=== PATIENT | male | born 1975 | race Caucasian/White ===

== ENCOUNTER 2017-12-28 04:21 | Observation (INO) ==
[2017-12-28] MEDS ORDERED: Aspirin 81 MG TAB.CHEW PO ONE (04:28)
--- NOTE | 2017-12-28 04:28 | Emergency Department Note ---
Disposition Clinical Impression: Chest pain Qualifiers: Chest pain type: unspecified Qualified Code(s): R07.9 - Chest pain, unspecified Disposition: Admitted As Inpatient Condition: Good Time of Disposition: 05:35 General Adult HPI - General Stated complaint: chest pain Source: patient Mode of arrival: ambulatory Limitations: no limitations Nursing Notes Reviewed: Yes Vital Signs Reviewed: Yes - History of Present Illness HPI Narrative: 42-year-old male presents emergency department with concern for chest pain. Patient reports that he woke up suddenly from sleep with left-sided rib cage pain that also radiated down his left arm. States that he was diaphoretic and nauseous with it. He took a Zofran before he came via EMS. Patient states his got chronic history of gastroparesis, and is never felt this way before. Also reports some of the pain began substernally as well. Patient denies any history of heart attack. He does report history of smoking and hypertension. - Related Data Home Medications Medication Instructions Recorded Confirmed Citalopram Hydrobromide [Celexa] 40 mg PO DAILY 12/06/17 12/28/17 Dicyclomine [Bentyl] 20 mg PO BID 12/06/17 12/28/17 Metoclopramide [Reglan] 10 mg PO TID 12/06/17 12/28/17 Ondansetron HCl [Zofran] 4 mg PO Q4H PRN 12/06/17 12/28/17 Pantoprazole Sodium [Protonix] 40 mg PO DAILY 12/06/17 12/28/17 Promethazine [Phenergan] 25 mg PO BID PRN 12/06/17 12/28/17 buPROPion HCl [Zyban] 150 mg PO BID 12/06/17 12/28/17 hydrOXYzine pamoate [Hydroxyzine 25 mg PO TID 12/06/17 12/28/17 Pamoate] ALPRAZolam [Xanax 1 MG Tablet] 1 mg PO DAILY PRN 12/28/17 12/28/17 Allergies Allergy/AdvReac Type Severity Reaction Status Date / Time No Known Allergies Allergy Verified 12/06/17 10:10 All systems ED: reviewed and negative except as stated. Review of Systems: As Per HPI Constitutional: Denies: fever Cardiovascular: Reports: chest pain. Denies: palpitations Respiratory: Denies: cough, dyspnea Gastrointestinal: Denies: abdominal pain, nausea, vomiting Genitourinary: Denies: urgency, dysuria, frequency Musculoskeletal: Reports: other (Left arm pain). Denies: back pain Integumentary: Denies: rash Past Medical History - Past Medical History Medical history: Reports: GERD, other Surgical history: Reports: cholecystectomy Psychiatric history: Reports: anxiety, depression - Social History Smoking Status: Current every day smoker Smokeless Tobacco Status: No Alcohol use: Reports: none Drug use: Reports: marijuana Physical Exam - General Limitations: no limitations General appearance: alert, anxious - Head Head exam: normocephalic - Eye Eye exam: Present: EOMI. Absent: scleral icterus - ENT ENT exam: normal oropharynx - Neck Neck exam: Present: trachea midline - Chest Chest inspection: Present: symmetric chest wall rise - Respiratory Respiratory exam: Present: normal lung sounds bilaterally. Absent: respiratory distress, accessory muscle use - Cardiovascular Cardiovascular exam: Present: regular rate, normal rhythm, normal heart sounds - Abdominal Exam Abdominal exam: Present: soft, Non-Tender. Absent: distention, guarding, rebound, rigidity - Extremities Exam Extremities exam: Present: normal capillary refill - Back Exam Back exam: Present: full ROM - Neurological Exam Neurological exam: Present: alert, oriented X3 - Psychiatric Psychiatric exam: Present: normal affect, normal mood - Skin Skin exam: Present: warm, dry, intact, normal color. Absent: rash Course Vital Signs Temperature 97.7 F 12/28/17 04:28 Pulse Rate 89 12/28/17 04:28 Respiratory Rate 18 12/28/17 04:28 Blood Pressure 133/109 12/28/17 04:28 O2 Sat by Pulse Oximetry 98 12/28/17 04:28 Temperature 97.7 F 12/28/17 04:28 Pulse Rate 89 12/28/17 04:28 Respiratory Rate 16 12/28/17 05:54 Blood Pressure 131/97 12/28/17 05:54 O2 Sat by Pulse Oximetry 97 12/28/17 04:31 Oxygen Delivery Oxygen Delivery Room Air Medical Decision Making - MDM Narrative Medical decision making narrative: 42-year-old male presents emergency Department with new onset chest pain. Patient was reporting being diaphoretic at the house, having sudden onset of chest pain right before arrival to the emergency department. EKG did not reveal any ischemic ST changes. Troponin was negative. Chest x-ray was within normal limits. Creatinine function was good. No leukocytosis. Hemoglobin was normal. Patient was given nitroglycerin as well as aspirin. After administration of the second supple nitroglycerin, patient did have symptomatic improvement with the left-sided chest pain. Patient was also given fentanyl here in the emergency department. Patient has history of anxiety. He was very anxious about what was going on with his chest pain as he has never felt this way. We have addressed this by administering Ativan. Patient's story is highly suspicious. Recommended admission for further observation and management of patient's chest pain. Patient agreed with the plan. Hospitalist agreed to accept the patient. Hemodynamically stable at time of admission. Chest X-Ray 12/28/17 04:28 IMPRESSION: Negative portable chest. D/ / Zane Mari MD / Zane Mari MD Interpreting Provider: Zane Mari MD Vital Signs Temperature 97.7 F 12/28/17 04:28 Pulse Rate 89 12/28/17 04:28 Respiratory Rate 18 12/28/17 04:28 Blood Pressure 133/109 12/28/17 04:28 O2 Sat by Pulse Oximetry 98 12/28/17 04:28 Temperature 97.7 F 12/28/17 04:28 Pulse Rate 89 12/28/17 04:28 Respiratory Rate 18 12/28/17 04:28 Blood Pressure 133/109 12/28/17 04:28 O2 Sat by Pulse Oximetry 97 12/28/17 04:31 Oxygen Delivery Oxygen Delivery Nasal Cannula - Lab Data Result diagrams: 12/28/17 04:30 12/28/17 04:30 Lab Results 12/28/17 12/28/17 12/28/17 Range/Units 04:30 04:30 04:30 WBC 8.6 (4.3-11.1) K/mcL RBC 4.90 (4.19-5.50) M/mcL Hgb 16.1 (12.9-16.9) g/dL Hct 44.4 (37.5-50.1) % MCV 90.6 (83.0-100.0) fL MCH 32.9 (28.0-33.3) pg MCHC 36.3 H (31.6-35.5) g/dL RDW 12.4 (11.5-14.5) % Plt Count 247 (140-400) K/mcL MPV 8.8 L (9.4-12.4) fL Immature Gran % 0.2 (0-4) % Seg Neutrophils % 71.4 % Lymphocytes % 20.6 % Monocytes % 6.3 % Eosinophils % 1.2 % Basophils % 0.3 % Neutrophils # 6.1 (1.6-8.9) K/mcL Lymphocytes # 1.8 (0.6-4.6) K/mcL Monocytes # 0.5 (0.0-1.3) K/mcL Eosinophils # 0.1 (0.0-0.6) K/mcL Basophils # 0.0 (0.0-0.2) K/mcL PT 11.5 (9.4-12.1) Seconds INR 1.0 APTT 27.8 (26.0-36.0) Seconds Sodium 136 (136-145) mEq/L Potassium 3.6 (3.5-5.1) mEq/L Chloride 104 (98-107) mEq/L Carbon Dioxide 23 (23-29) mEq/L BUN 17 (6-20) mg/dL Creatinine 0.62 L (0.70-1.30) mg/dL Est GFR ( Amer) > 60 (> 60) Est GFR (Non-Af Amer) > 60 (> 60) BUN/Creatinine Ratio 27 H (6-26) Glucose 133 H (70-105) mg/dL Calculated Osmolality 285 (280-300) Calcium 9.7 (8.6-10.3) mg/dL Troponin I < 0.03 (< 0.04) ng/mL - EKG Data EKG #1 EKG attestation: Yes I reviewed and interpreted this EKG. EKG results narrative: 4:26 Ventricular rate 70 bpm, IA interval 147 ms, QRS duration 106 ms, QT 370 ms, QTC 403 ms, left axis deviation. Sinus rhythm with a ventricular rate of 70 bpm. No evidence of any ischemic ST changes on this EKG. Attestation Statement - Attestation Attestation: Dr Troncoso note: Pt seen in conjunction w/ resident Dr Pabon; please see his charting for complete documentation. I spent [id number]-[id number] time with the patient and I agree with the patient's treatment and disposition. Chest pain at rest after midnight ; x rays and labs reviewed; pain free on arrival; pt denies such sx prior;
[2017-12-28 04:44] LABS: Basophils % 0.3 %; Eosinophils # 0.1 K/mcL (0.0-0.6); Eosinophils % 1.2 %; Hematocrit 44.4 % (37.5-50.1); Hemoglobin 16.1 g/dL (12.9-16.9); Immature Granulocytes % 0.2 % (0-4); Lymphocytes # 1.8 K/mcL (0.6-4.6); Lymphocytes % 20.6 %; Mean Corpuscular HGB Conc 36.3 g/dL (31.6-35.5); Mean Corpuscular Hemoglobin 32.9 pg (28.0-33.3); Mean Corpuscular Volume 90.6 fL (83.0-100.0); Mean Platelet Volume 8.8 fL (9.4-12.4); Monocytes # 0.5 K/mcL (0.0-1.3); Monocytes % 6.3 %; Neutrophils # 6.1 K/mcL (1.6-8.9); Platelet Count 247 K/mcL (140-400); Red Cell Distribution Width 12.4 % (11.5-14.5); Segmented Neutrophils % 71.4 %
[2017-12-28] MEDS ORDERED: Nitroglycerin 0.4 MG TAB.SUBL SL PRN (04:47)
[2017-12-28] MEDS ORDERED: 0.9 % Sodium Chloride 1,000 ML IVC ONE (04:47)
[2017-12-28 04:49] LABS: Prothrombin Time 11.5 Seconds (9.4-12.1)
[2017-12-28 04:51] LABS: Activated Partial Thrombo Time 27.8 Seconds (26.0-36.0)
[2017-12-28] MEDS ORDERED: *HR* LORazepam 2 MG/ML VIAL IVP ONE ×2 (05:01→05:36)
[2017-12-28] MEDS ORDERED: *HR* LORazepam 2 MG/ML VIAL ONE (05:03)
[2017-12-28 05:05] LABS: BUN/Creatinine Ratio 27 (6-26); Blood Urea Nitrogen 17 mg/dL (6-20); Calcium 9.7 mg/dL (8.6-10.3); Carbon Dioxide 23 mEq/L (23-29); Chloride 104 mEq/L (98-107); Glucose 133 mg/dL (70-105); Osmolality,Calculated 285 (280-300); Potassium 3.6 mEq/L (3.5-5.1); Sodium 136 mEq/L (136-145); eGFR For Non-African Americans > 60 (> 60)
[2017-12-28 05:06] LABS: Troponin I < 0.03 ng/mL (< 0.04)
[2017-12-28] MEDS ORDERED: *HR* FentaNYL (PF) 100 MCG/2 ML VIAL IVP ONE (05:12)
[2017-12-28] MEDS ORDERED: Naloxone 0.4 MG/ML INJ IVP PRN (06:20)
[2017-12-28] MEDS ORDERED: *HR* OxyCODONE Immed Rel 5 MG TABLET PO PRN (06:20)
[2017-12-28] MEDS ORDERED: Acetaminophen 325 MG TABLET PO PRN (06:20)
[2017-12-28] MEDS ORDERED: *HR* HYDROcodone/Acet 5/325 mg TABLET PO PRN (06:20)
[2017-12-28 06:51] LABS: Cholesterol 209 mg/dL (< 200); HDL Cholesterol 35 mg/dL (40-59); LDL Cholesterol,Calculated 147 mg/dL (0-99); Triglycerides 135 mg/dL (< 150)
[2017-12-28 08:52] LABS: Estimated Average Glucose 111 mg/dl; Hemoglobin A1C 5.5 %
[2017-12-28] MEDS ORDERED: Ondansetron ODT 4 MG TAB.RAPDIS PO PRN (10:00)
--- NOTE | 2017-12-28 10:09 | Internal Med History&Physical ---
Date of Encounter: 12/28/17 Time of Encounter: 10:04 Internal Medicine - H&P: HPI Chief complaint: rib/chest pain Admitted From: Home Plans for Post Hospital Care: Home History of present illness: Mr. Givens is a 42 year old male with a PMH of GERD, anxiety, gastroparesis, who presented with left sided rib pain with radiated to his left chest. He reports that the pain began last night and caused him to awake from sleep. Associated symptoms include, left arm numbness and tingling, dyspnea, nausea and diaphoresis. Symptoms are intermittent and exacerbated with use of LLE, currently denies any pain during my examination. Denies any family cardiac history, and denies any prior personal cardiac history. He is a daily 1/2 PPD smoker and regular marijuana user. Workup in the ED included an EKG which per my review did not have any ST-T waver elevations concerning for ischemia. Additionaly, his initial cardiac enzyme was negative <0.03, and CXR was negative for acute process. Given his presentation he is being admitted for further workup and evaluation and admitted for observation. Past Med Surg Social Fam HX - Past Medical History Medical history: GERD, other Additional medical history: gastroporesis Psychiatric history: anxiety, depression - Past Surgical History Surgical History: cholecystectomy Additional surgical history: alcoholism, quit Jan 2015 - Social History Smoking Status: Current every day smoker Smokeless Tobacco Status: No Alcohol use: none Drug use: marijuana - Family History Father Living Status: Cause of : lung ca Hx Family Cardiac Disorders: No Hx Family Respiratory Disorders: No Hx Family Cancer: Yes (throat ca) Hx Family GI Disorders: No Hx Family Genitourinary Disorders: No Hx Family Endocrine Disorder: No Hx Family Musculoskeletal Disorders: No Hx Family Neuromuscular Disorders: No Hx Family Neurologic Disorders: No Hx Family HEENT Disorders: No Hx Family Autoimmune Disorders: No Hx Family Reproductive Disorders: No Hx Family Psychosocial Disorders: No Hx Family Medical Disorders: No Mother Adopted: No Family Member Ethnicity: Non- Living Status: Cause of : lung ca Hx Family Cardiac Disorders: No Hx Family Respiratory Disorders: No Hx Family Cancer: Yes (brain) Hx Family GI Disorders: No Hx Family Genitourinary Disorders: No Hx Family Endocrine Disorder: No Hx Family Musculoskeletal Disorders: No Hx Family Neuromuscular Disorders: No Hx Family Neurologic Disorders: No Hx Family HEENT Disorders: No Hx Family Autoimmune Disorders: No Hx Family Reproductive Disorders: No Hx Family Psychosocial Disorders: No Hx Family Medical Disorders: No Internal Medicine - H&P: Meds Citalopram Hydrobromide [Celexa] 40 mg PO DAILY 12/06/17 [History] Dicyclomine [Bentyl] 20 mg PO BID 12/06/17 [History] Metoclopramide [Reglan] 10 mg PO TID 12/06/17 [History] Ondansetron HCl [Zofran] 4 mg PO Q4H PRN 12/06/17 [History] Pantoprazole Sodium [Protonix] 40 mg PO DAILY 12/06/17 [History] Promethazine [Phenergan] 25 mg PO BID PRN 12/06/17 [History] hydrOXYzine pamoate [Hydroxyzine Pamoate] 25 mg PO TID 12/06/17 [History] ALPRAZolam [Xanax 1 MG Tablet] 1 mg PO DAILY PRN 12/28/17 [History] Desipramine [Norpramine] 25 mg PO HS 12/28/17 [History] 3 Allergy/AdvReac Type Severity Reaction Status Date / Time No Known Allergies Allergy Verified 12/06/17 10:10 All Systems PM: A 10-system review of systems was performed and is negative for pertinent findings except as documented above in the HPI. - Constitutional Constitutional: no chills, no fever(s), no night sweats - EENT Eyes: no change in vision, no discharge, no pain, no photophobia Ears: no ear discharge, no ear pain, no tinnitus Nose, mouth and throat: no dysphagia, no nasal discharge, no neck pain, no sore throat - Cardiovascular Cardiovascular ROS IM: as per HPI - Respiratory Respiratory: as per HPI, no cough, no hemoptysis, no wheezing, no chest congestion - Gastrointestinal Gastrointestinal: no abdominal pain, no diarrhea, no hematemesis, no hematochezia, no melena, no nausea, no vomiting - Constitutional Vitals: Temp Pulse Resp BP Pulse Ox 97.5 F L 91 16 131/90 96 12/28/17 06:31 12/28/17 06:31 12/28/17 06:31 12/28/17 06:31 12/28/17 06:31 Exam: Musculoskeletal: tenderness below left axilla with palpation, no swelling, lymphnode swelling noted. No tenderness to palpation of chest. Reports that his pain was slightly worse with use of LUE - Head Head exam: Present: atraumatic, normocephalic - Eye Eye exam: Present: PERRL, conjuntiva pink, sclera anicteric Pupils: Present: PERRL - Neck Neck exam general surgery: Present: supple, trachea midline. Absent: lymphadenopathy - Respiratory Respiratory exam: Present: CTAB. Absent: accessory muscle use, rales, rhonchi, wheezes - Cardiovascular Cardiovascular exam: Present: RRR, +S1, +S2. Absent: diastolic murmur, gallop, rubs, systolic murmur - GI/Abdominal GI/Abdominal exam: Present: normal bowel sounds, soft, no peritoneal signs. Absent: distended, tenderness - Extremities Exam Extremities exam: Present: warm, radial pulses palpable and symmetrical. Absent : calf tenderness, cyanotic, pedal edema - Neurological Exam Neurological exam: Present: CN II-XII intact, oriented X3, no focal deficits. Absent: pronater drift, facial droop, speech deficit - Skin Skin exam: Present: dry, intact Internal Med - H&P Results - Labs CBC & Chem 7: 12/28/17 04:30 12/28/17 04:30 - EKG Data -: EKG Interpreted by Myself EKG shows normal: sinus rhythm Rate: normal - EKG Data Prior EKG available for review: no - Impressions Impressions Chest X-Ray 12/28/17 04:28 IMPRESSION: Negative portable chest. D/ / Zane Mari MD / Zane Mari MD Interpreting Provider: Zane Mari MD - Assessment and plan (1) Chest pain Current Visit: Yes Status: Acute Assessment and plan: Presents with left sided chest pain/ left rib pain; presentation appears to be more musculoskeletal in nature than true cardiac pain however, given that the patient is reporting diaphoresis, nausea and shortness of breath we will continue rule out ACS. CXR negative for acute process, initial cardiac enzyme negative, EKG without any ST-T wave changes concerning for ischemia. In the ED the patient was noted to be anxious and admits to having history of anxiety. I believe that there is an anxiety component contributing to his current presentation. Resume home anxiolytics Nothing by mouth now, stress test this afternoon Echocardiogram Continuous telemetry Serial cardiac enzymes 81 mg aspirin daily Lipid panel in the morning Qualifiers: Chest pain type: unspecified Qualified Code(s): R07.9 - Chest pain, unspecified (2) Rib pain on left side Current Visit: Yes Status: Acute Assessment and plan: see above (3) Anxiety Current Visit: Yes Status: Acute Assessment and plan: See above (4) Gastroparesis Current Visit: Yes Status: Acute Assessment and plan: Continue antiemetic and prokinetic (5) DVT prophylaxis Current Visit: Yes Status: Acute Assessment and plan: low risk, early ambulation - Time Spent With Patient Total time spent is greater than 50% in coordination of care (as documented) at patient's floor/unit and/or counseling patient: less than 15 minutes
[2017-12-28] MEDS: hydrOXYzine pamoate 25 MG CAPSULE PO SCH ×3 (11:21→21:47)
[2017-12-28] MEDS: ALPRAZolam 1 MG TABLET PO PRN (14:18)
--- NOTE | 2017-12-28 17:14 | Electrocardiograph Report ---
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
[2017-12-29 07:53] VITALS: BP 136/87
[2017-12-29] MEDS: ALPRAZolam 1 MG TABLET PO PRN (07:55)
[2017-12-29] MEDS: hydrOXYzine pamoate 25 MG CAPSULE PO SCH (07:55)
[2017-12-29] MEDS ORDERED: Aspirin 81 MG TAB.CHEW PO SCH (09:00)
--- NOTE | 2017-12-29 10:18 | Discharge Summary ---
- NOTES TO OUTPATIENT PROVIDER Notes to Outpatient Provider: Patient reports that he is in need of Xanax PRN. Rx has run out. Pts. lipid panel is also high. Repeat as OP and consider placing pt. on statin. Date of Encounter: 12/29/17 Time of Encounter: 10:16 - Discharge Diagnosis (1) Chest pain Priority: Primary Status: Acute Qualifiers: Chest pain type: unspecified Qualified Code(s): R07.9 - Chest pain, unspecified (2) Rib pain on left side Priority: Primary Status: Acute (3) Anxiety Priority: Secondary Status: Acute (4) Gastroparesis Priority: Secondary Status: Acute (5) DVT prophylaxis Priority: Secondary Status: Acute Hospital course: Mr. Givens is a 42 year old male who was admitted w/left-sided rib pain w/ radiation to left breast and left arm. Worse w/range of motion. Stress test shows NSR @ rest, no baseline arrhythmias noted. Stress ECG negative for ischemia. No arrhythmias noted during exercise or recovery. One PVC noted. PT. demonstrated normal blood pressure response. The exercise capacity was average. No chest pain during stress procedure. Echocardiogram shows LVEF of 60-65%, normal LV chamber size, wall thickness, and function. Mild left ventricular diastolic dysfunction. Normal right ventricular structure and function. No evidence of pulmonary hypertension. No significant valvular dysfunction. Pt. states that he has hx of anxiety and takes Xanax PRN. Sx most likely d/t stress response. Pt. instructed to f/u w/PCP within one week for refill of PRN Xanax. Pt. should also have repeat lipid panel as OP w/PCP w/consideration for possible statin use. Pt. alert/oriented on exam and in no acute distress. Is comfortable w/discharge plan and expresses understanding about f/u w/PCP w/i one week. Discharge discussed with: patient, nurse - Time Spent with Patient Total time spent providing and/or coordinating discharge services: Less than 30 minutes Specific discharge activities: F/u w/PCP within one week for refill of PRN Xanax and possible statin. - Discharge Medications Home Medications: Citalopram Hydrobromide [Celexa] 40 mg PO DAILY 12/06/17 [History] Dicyclomine [Bentyl] 20 mg PO BID 12/06/17 [History] Metoclopramide [Reglan] 10 mg PO TID 12/06/17 [History] Ondansetron HCl [Zofran] 4 mg PO Q4H PRN 12/06/17 [History] Pantoprazole Sodium [Protonix] 40 mg PO DAILY 12/06/17 [History] Promethazine [Phenergan] 25 mg PO BID PRN 12/06/17 [History] hydrOXYzine pamoate [Hydroxyzine Pamoate] 25 mg PO TID 12/06/17 [History] ALPRAZolam [Xanax 1 MG Tablet] 1 mg PO DAILY PRN 12/28/17 [History] Desipramine [Norpramine] 25 mg PO HS 12/28/17 [History] Allergies/Adverse Reactions: 3 Allergy/AdvReac Type Severity Reaction Status Date / Time No Known Allergies Allergy Verified 12/06/17 10:10 Date of admission: 12/28/17 05:39 Primary care physician: Tyler Irwin Jr, Discharging clinician: Logan Fernandes Anticipated date of discharge: 12/29/17 - Constitutional Vitals: Temp Pulse Resp BP Pulse Ox 97.8 F 72 17 136/87 98 12/29/17 07:50 12/29/17 07:50 12/29/17 07:50 12/29/17 07:50 12/29/17 07:50 General appearance: Present: cooperative, A&O X 3, pleasant, no acute distress, answers questions appropriately - Head Head exam: Present: atraumatic, normocephalic - Eye Eye exam: Present: PERRL, conjuntiva pink, sclera anicteric Pupils: Present: PERRL - ENT ENT exam: Present: normal exam - Neck Neck exam general surgery: Present: normal inspection, supple, trachea midline. Absent: lymphadenopathy - Respiratory Respiratory exam: Present: CTAB. Absent: accessory muscle use, rales, rhonchi, wheezes - Cardiovascular Cardiovascular exam: Present: RRR, +S1, +S2. Absent: diastolic murmur, gallop, rubs, systolic murmur - GI/Abdominal GI/Abdominal exam: Present: normal bowel sounds, soft, no peritoneal signs. Absent: distended, tenderness - Rectal Rectal exam: Present: deferred - Additional comments: exam deferred. - Extremities Exam Extremities exam: Present: warm, radial pulses palpable and symmetrical. Absent : calf tenderness, cyanotic, pedal edema - Back Exam Back exam: Present: normal inspection - Neurological Exam Neurological exam: Present: alert, CN II-XII intact, oriented X3, no focal deficits. Absent: pronater drift, facial droop, speech deficit - Psychiatric Psychiatric exam: Present: normal affect, normal mood - Skin Skin exam: Present: dry, intact - Patient Status Disposition: Home, Self-Care Condition: Good Functional capacity at discharge: independent ambulation Overall status at discharge: patient is back to baseline - Discharge Instructions Instructions: Chest Pain (DC), Chest Pain (GEN) Follow Up With: Tyler Irwin Jr, MD [Primary Care Provider] - (Please call and make a follow up appt for 7-10 days.) - Diet and Activity Activity: increase activity as tolerated Diet: advance to your usual diet
== END 2017-12-29 11:31 | disposition home or self-care (01) ==
LOC: 3BNU 04:21 → EMEROO 04:21 → 3BNU 06:00
PROVIDERS: ADMIT Internal Medicine; ATTEND Internal Medicine

== ENCOUNTER 2018-09-17 20:58 | Observation (INO) ==
[2018-09-17] MEDS ORDERED: methylPREDNISolone 125 MG/2 ML VIAL IVP ONE (21:06)
[2018-09-17] MEDS ORDERED: Ipratropium/Albuterol Neb 3 ML IH ONE (21:06)
[2018-09-17] MEDS ORDERED: 0.9 % Sodium Chloride 1,000 ML IVC ONE (21:06)
[2018-09-17] MEDS ORDERED: *HR* LORazepam 2 MG/ML VIAL IVP ONE ×2 (21:07→23:22)
[2018-09-17 21:40] LABS: Basophils % 0.1 %; Hematocrit 45.7 % (37.5-50.1); Hemoglobin 15.6 g/dL (12.9-16.9); Immature Granulocytes % 0.4 % (0-4); Mean Corpuscular HGB Conc 34.1 g/dL (31.6-35.5); Mean Corpuscular Hemoglobin 32.2 pg (28.0-33.3); Mean Corpuscular Volume 94.4 fL (83.0-100.0); Mean Platelet Volume 8.6 fL (9.4-12.4); Monocytes # 0.3 K/mcL (0.0-1.3); Monocytes % 3.5 %; Neutrophils # 6.5 K/mcL (1.6-8.9); Platelet Count 264 K/mcL (140-400); Red Blood Count 4.84 M/mcL (4.19-5.50); Red Cell Distribution Width 13.3 % (11.5-14.5)
[2018-09-17 22:04] LABS: BUN/Creatinine Ratio 28 (6-26); Blood Urea Nitrogen 18 mg/dL (6-20); Calcium 9.7 mg/dL (8.6-10.3); Carbon Dioxide 22 mEq/L (23-29); Chloride 104 mEq/L (98-107); Glucose 108 mg/dL (70-105); Osmolality,Calculated 286 (280-300); Potassium 4.2 mEq/L (3.5-5.1); Sodium 137 mEq/L (136-145); Troponin I < 0.03 ng/mL (< 0.04); eGFR For Non-African Americans > 60 (> 60)
--- NOTE | 2018-09-17 22:28 | Emergency Department Note ---
Disposition Clinical Impression: COPD exacerbation Chest pain Qualifiers: Chest pain type: unspecified Qualified Code(s): R07.9 - Chest pain, unspecified Disposition: Admitted As Inpatient Condition: Fair Referrals: Tyler Irwin Jr, MD [Primary Care Provider] - Time of Disposition: 23:45 SOB HPI - General Stated Complaint: JOYCE Time Seen by Provider: 09/17/18 21:06 Source: patient, EMS Mode of arrival: ambulatory Limitations: no limitations Nursing Notes Reviewed: Yes Vital Signs Reviewed: Yes - History of Present Illness Patient presents emergency room with acute onset of shortness of breath left arm tingliness and panic attack. Patient was seen yesterday for identical symptoms. He is unable to talk himself out of the events here today. 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: other Severity: severe Consistency/Duration: constant Improves with: nothing Worsens with: nothing Known history of: COPD, other Associated symptoms: Reports: chest pain, parasthesias, diaphoresis, nausea/vomiting, sense of impending doom Treatment prior to arrival: oxygen Cough present: No - Related Data Home Medications Medication Instructions Recorded Confirmed Citalopram Hydrobromide [Celexa] 40 mg PO DAILY 12/06/17 12/28/17 Dicyclomine [Bentyl] 20 mg PO BID 12/06/17 12/28/17 Metoclopramide [Reglan] 10 mg PO TID 12/06/17 12/28/17 Ondansetron HCl [Zofran] 4 mg PO Q4H PRN 12/06/17 12/28/17 Pantoprazole Sodium [Protonix] 40 mg PO DAILY 12/06/17 12/28/17 Promethazine [Phenergan] 25 mg PO BID PRN 12/06/17 12/28/17 hydrOXYzine pamoate [Hydroxyzine 25 mg PO TID 12/06/17 12/28/17 Pamoate] ALPRAZolam [Xanax 1 MG Tablet] 1 mg PO DAILY PRN 12/28/17 12/28/17 Desipramine [Norpramine] 25 mg PO HS 12/28/17 12/28/17 Previous Rx's Medication Instructions Recorded hydrOXYzine HCl [Hydroxyzine HCl] 50 mg PO BID PRN #10 tablet 06/28/18 predniSONE [PredniSONE] 40 mg PO DAILY #8 tablet 07/28/18 predniSONE [Prednisone] 50 mg PO DAILY #5 tablet 09/10/18 Allergies Allergy/AdvReac Type Severity Reaction Status Date / Time No Known Allergies Allergy Verified 08/25/18 00:28 All systems ED: reviewed and negative except as stated. Review of Systems: As Per HPI Constitutional: Denies: fever, chills Cardiovascular: Reports: chest pain. Denies: palpitations, dyspnea on exertion, orthopnea, edema Respiratory: Reports: dyspnea, wheezes. Denies: cough, sputum production Gastrointestinal: Denies: abdominal pain, nausea, vomiting, diarrhea, constipation Genitourinary: Denies: urgency, dysuria, frequency Musculoskeletal: Denies: back pain, neck pain Integumentary: Denies: rash Neurological: Denies: headache Psychiatric: Reports: anxiety Endocrine: Denies: fatigue Past Medical History - Past Medical History Attestation: Yes The following information was validated with the patient. Source: patient Medical history: Reports: asthma, COPD, GERD, other Surgical history: Reports: cholecystectomy Psychiatric history: Reports: anxiety, depression - Social History Smoking Status: Current every day smoker Smokeless Tobacco Status: No Alcohol use: Reports: none Drug use: Reports: none, marijuana Physical Exam - General Limitations: no limitations General appearance: alert, anxious - Head Head exam: atraumatic, normocephalic, normal inspection - ENT ENT exam: normal exam, normal oropharynx, mucous membranes moist - Neck Neck exam: Present: normal inspection, full ROM, trachea midline. Absent: te nderness - Chest Chest inspection: Present: normal inspection, symmetric chest wall rise. Absent: tenderness - Respiratory Respiratory exam: Present: normal lung sounds bilaterally. Absent: respiratory distress, accessory muscle use - Cardiovascular Cardiovascular exam: Present: regular rate, normal rhythm, normal heart sounds - Abdominal Exam Abdominal exam: Present: soft, Non-Tender, normal bowel sounds. Absent: tenderness, distention, guarding, rebound, rigidity - Extremities Exam Extremities exam: Present: normal inspection - Back Exam Back exam: Present: normal inspection, full ROM. Absent: tenderness - Neurological Exam Neurological exam: Present: alert, oriented X3, CN II-XII intact, normal gait - Psychiatric Psychiatric exam: Present: anxious - Skin Skin exam: Present: warm, dry, intact, normal color Course Course Narrative: p patient was seen and examined the time of arrival. See history of present illness. 42-year-old male presents emergency room by EMS for evaluation of shortness of breath, left arm tingling, chest tightness, panic attack. Patient was seen yesterday for identical symptoms and presentation. He was symptomatically treated yesterday and had a cardiac evaluation completed. Patient electively decided to be discharged home at that time. He was stable all day but did not take any of his home medications. Acutely tonight, the patient started to have panic again and all the other symptoms came back. Patient presented to the emergency room covering and very anxious. Vital signs during transport were stable. Patient is sitting upright in the bed. He speaking in full sentences. He has clear lungs with no wheezing. Heart is regular. Abdomen soft. No pulsatile masses or lesions. Extremities are normal outside of the tremor. No signs of edema or swelling. Patient will have Ativan provided this time along with aspirin. EKG chest x-ray CBC chemistry and troponin will be collected along with BNP and d-dimer. Symptomatic control will be established and disposition determined. Patient will most every required admission of this time secondary to emergent pain and presentation. He is scheduled for a stress test as well as pulmonary function testing in the outpatient setting here in the next week. Patient is otherwise stable. Disposition to be determined - Reevaluation(s) Reevaluation #1: Patient is feeling better but still having palpitations and feeling uncomfortable. He is requiring oxygen here in the emergency room to feel stable at this time. Because of the presentation, as well as a repeat evaluation and complaints of chest pain, the patient will be admitted for COPD exacerbation with chest pain. He does not require anticoagulation at this time. The hospitalist has been paged for admission. Patient was discussed with the hospitalist Dr. Dorado. Detailed review the presentation as well as multiple visits for this patient was discussed. At this time we are diagnosing and treating the patient with a COPD exacerbation and chest pain. Majority this is most likely secondary to panic attacks and anxiety driven issues. Patient will have cardiac evaluation completed. Disposition will be admission. Patient will be monitored here in the emergency department until admission process is completed. No other acute intervention required at this time. Patient is otherwise stable. Time: 23:45 Vital Signs Temperature 97.8 F 09/17/18 21:01 Pulse Rate 85 04/28/19 21:01 Respiratory Rate 20 09/17/18 21:01 Blood Pressure 159/98 09/17/18 21:01 O2 Sat by Pulse Oximetry 99 09/17/18 21:01 Temperature 97.8 F 09/17/18 21:01 Pulse Rate 74 09/17/18 23:42 Respiratory Rate 22 09/17/18 23:42 Blood Pressure 127/84 09/17/18 23:42 O2 Sat by Pulse Oximetry 100 09/17/18 23:42 Oxygen Delivery Oxygen Delivery Nasal Cannula Shortness of Breath/Dyspnea - MDM Narrative Medical decision making narrative: Panic attack, chest pain, shortness of breath, COPD exacerbation - Medical Records Medical records reviewed: Yes I reviewed the patient's medical records. - Lab Data Lab results reviewed: Yes I reviewed the patient's lab results. Result diagrams: 09/17/18 21:31 09/17/18 21:31 Lab Results 09/17/18 09/17/18 09/17/18 Range/Units 21:31 21:31 21:31 WBC 7.8 (4.3-11.1) K/mcL RBC 4.84 (4.19-5.50) M/mcL Hgb 15.6 (12.9-16.9) g/dL Hct 45.7 (37.5-50.1) % MCV 94.4 (83.0-100.0) fL MCH 32.2 (28.0-33.3) pg MCHC 34.1 (31.6-35.5) g/dL RDW 13.3 (11.5-14.5) % Plt Count 264 (140-400) K/mcL MPV 8.6 L (9.4-12.4) fL Immature Gran % 0.4 (0-4) % Seg Neutrophils % 83.0 % Lymphocytes % 13.0 % Monocytes % 3.5 % Eosinophils % 0.0 % Basophils % 0.1 % Neutrophils # 6.5 (1.6-8.9) K/mcL Lymphocytes # 1.0 (0.6-4.6) K/mcL Monocytes # 0.3 (0.0-1.3) K/mcL Eosinophils # 0.0 (0.0-0.6) K/mcL Basophils # 0.0 (0.0-0.2) K/mcL D-Dimer < 215 (0-500) ng/mLFEU Sodium 137 (136-145) mEq/L Potassium 4.2 (3.5-5.1) mEq/L Chloride 104 (98-107) mEq/L Carbon Dioxide 22 L (23-29) mEq/L BUN 18 (6-20) mg/dL Creatinine 0.65 L (0.70-1.30) mg/dL Est GFR ( Amer) > 60 (> 60) Est GFR (Non-Af Amer) > 60 (> 60) BUN/Creatinine Ratio 28 H (6-26) Glucose 108 H (70-105) mg/dL Calculated Osmolality 286 (280-300) Lactic Acid (0.5-2.2) mmol/L Calcium 9.7 (8.6-10.3) mg/dL Troponin I < 0.03 (< 0.04) ng/mL B-Natriuretic Peptide (Less than 100) pg/mL 09/17/18 09/17/18 Range/Units 21:31 21:31 WBC (4.3-11.1) K/mcL RBC (4.19-5.50) M/mcL Hgb (12.9-16.9) g/dL Hct (37.5-50.1) % MCV (83.0-100.0) fL MCH (28.0-33.3) pg MCHC (31.6-35.5) g/dL RDW (11.5-14.5) % Plt Count (140-400) K/mcL MPV (9.4-12.4) fL Immature Gran % (0-4) % Seg Neutrophils % % Lymphocytes % % Monocytes % % Eosinophils % % Basophils % % Neutrophils # (1.6-8.9) K/mcL Lymphocytes # (0.6-4.6) K/mcL Monocytes # (0.0-1.3) K/mcL Eosinophils # (0.0-0.6) K/mcL Basophils # (0.0-0.2) K/mcL D-Dimer (0-500) ng/mLFEU Sodium (136-145) mEq/L Potassium (3.5-5.1) mEq/L Chloride (98-107) mEq/L Carbon Dioxide (23-29) mEq/L BUN (6-20) mg/dL Creatinine (0.70-1.30) mg/dL Est GFR ( Amer) (> 60) Est GFR (Non-Af Amer) (> 60) BUN/Creatinine Ratio (6-26) Glucose (70-105) mg/dL Calculated Osmolality (280-300) Lactic Acid 2.1 (0.5-2.2) mmol/L Calcium (8.6-10.3) mg/dL Troponin I (< 0.04) ng/mL B-Natriuretic Peptide 31 (Less than 100) pg/mL - Radiology Data Radiology results reviewed: Yes I reviewed the patient's radiology results. Chest x-ray is unremarkable for acute signs of intrathoracic related etiology to the symptoms here today - EKG Data EKG attestation: Yes I reviewed and interpreted this EKG. EKG results narrative: EKG shows sinus rhythm. Heart rate is 78. MA interval 136. QRS duration of 98. QTC of 438. [place] is normal. No acute signs of ST segment elevation or myocardial infarction. No acute signs of WPW or Brugada syndrome. EKG is c ompared for the one collected yesterday that shows no acute morphology changes or abnormalities
[2018-09-17] MEDS ORDERED: Aspirin 81 MG TAB.CHEW PO STA (23:29)
[2018-09-18] MEDS ORDERED: hydrOXYzine pamoate 25 MG CAPSULE PO PRN (00:06)
[2018-09-18] MEDS ORDERED: Naloxone 0.4 MG/ML INJ IVP PRN (00:09)
[2018-09-18] MEDS ORDERED: Acetaminophen 325 MG TABLET PO PRN (00:09)
[2018-09-18] MEDS ORDERED: Ipratropium/Albuterol Neb 3 ML IH PRN (00:09)
--- NOTE | 2018-09-18 00:34 | Internal Med History&Physical ---
Date of Encounter: 09/18/18 Time of Encounter: 00:33 Internal Medicine - H&P: HPI Chief complaint: sob Admitted From: Home Plans for Post Hospital Care: Home History of present illness: Kalpesh Givens is a 42-year-old male smoker with a history of substance use disorder and anxiety disorder undergoing diagnosis for COPD who has been admitted here and seen in the emergency department the plethora of times with complaints of shortness of breath and chest pain ranging at least 3 times a month over the past 6 months. He was seen yesterday with complaints of shortness of breath and left-sided chest pain in combination with anxiety but decided to go home afterwards. He comes back again complaining of shortness of breath and chest pain on the left side of his chest with his left arm and left posterior thigh. These are similar complaints seen on history of present illness from December 2017 at which time he underwent stress testing which was negative. Though he says these complaints are not new review of old records demonstrate that these are similar complaints from months ago. He does acknowledge that these complaints are associated with panic attacks and anxiety as his mother at age 44 from lung which he will be turning in a few months and remains a smoker. He denies fever, chills, productive cough. He says he is unable to take a deep breath and feels tightness in his chest. Lab work was unremarkable. D-dimer was less than 200. Chest x-ray revealed no infiltrates or signs of emphysema. He was giving 2 mg of lorazepam to achieve comfort as well as nebulizer therapy, aspirin and steroids. He is admitted for observation. Vitals: Reviewed General: Obese white male sitting up in bed in no acute distress talking to his family in full sentences. Skin: Multiple tattoos but no inflammatory signs present. HEENT: Moist mucous membranes. No conjunctivae pallor. Neck: No lymphadenopathy. No JVD. No carotid bruits. No palpable thyroid. Chest: Normal thoracic expansion. Normal breath sounds. Clear to auscultation. Heart: Normal S1 & S2; rhythmic. No rubs or murmurs. Abdomen: Non-distended, soft and non-tender to palpation. No peritoneal reaction. Extremities: No clubbing, cyanosis or edema. No calf tenderness. Normal distal pulses. Neurological: Awake, alert and oriented to person, place and time. No focal deficits. Psych: Affect appropriate. Assessment/Plan 1. Dyspnea: Possibly related to smoking history and may have COPD. On my physical exam there is no breath sound reduction, wheezing or rhonchi. His x-ray does not have features suggestive of emphysematous disease and he does not meet clinical criteria for chronic bronchitis. He would need dedicated PFTs for a more formal diagnosis and this is already scheduled. There may be a component of anxiety as well but all the same we will observe him overnight, place him on nebulizer therapy as needed and oral steroids for a short course. 2. Chest pain: Troponins have been serially negative, his echo from last summer was unremarkable and his stress test negative. A repeat stress test today is likely unnecessary as his complaints are atypical stating he has pain in his left flank and posterior thigh as well. Will monitor on telemetry; he has received loading dose of aspirin. Advised to follow up with the repeat stress test already scheduled for him as an outpatient. 3. Anxiety disorder: Will place him on alprazolam prn. 4. Substance use disorder: Noted to have had cocaine metabolites in urine in October 2015; will recheck. Past Med Surg Social Fam HX - Past Medical History Medical history: asthma, COPD, GERD, other Additional medical history: gastroparesis Psychiatric history: anxiety, depression - Past Surgical History Surgical History: cholecystectomy Additional surgical history: alcoholism, quit Jan 2015 - Social History Smoking Status: Current every day smoker Smokeless Tobacco Status: No Alcohol use: none Drug use: none, marijuana - Family History Father Living Status: Hx Family Cardiac Disorders: No Hx Family Respiratory Disorders: No Hx Family Cancer: Yes (throat ca) Hx Family GI Disorders: No Hx Family Endocrine Disorder: No Hx Family Neuromuscular Disorders: No Hx Family Neurologic Disorders: No Hx Family HEENT Disorders: No Hx Family Autoimmune Disorders: No Mother Adopted: No Family Member Ethnicity: Non- Living Status: Hx Family Cardiac Disorders: No Hx Family Respiratory Disorders: No Hx Family Cancer: Yes (brain) Hx Family GI Disorders: No Hx Family Endocrine Disorder: No Hx Family Neuromuscular Disorders: No Hx Family Neurologic Disorders: No Hx Family HEENT Disorders: No Hx Family Autoimmune Disorders: No Internal Medicine - H&P: Meds Citalopram Hydrobromide [Celexa] 40 mg PO DAILY 12/06/17 [History] Dicyclomine [Bentyl] 20 mg PO BID 12/06/17 [History] Metoclopramide [Reglan] 10 mg PO TID 12/06/17 [History] Ondansetron HCl [Zofran] 4 mg PO Q4H PRN 12/06/17 [History] Pantoprazole Sodium [Protonix] 40 mg PO DAILY 12/06/17 [History] Promethazine [Phenergan] 25 mg PO BID PRN 12/06/17 [History] hydrOXYzine pamoate [Hydroxyzine Pamoate] 25 mg PO TID 12/06/17 [History] ALPRAZolam [Xanax 1 MG Tablet] 1 mg PO DAILY PRN 12/28/17 [History] Desipramine [Norpramine] 25 mg PO HS 12/28/17 [History] hydrOXYzine HCl [Hydroxyzine HCl] 50 mg PO BID PRN #10 tablet 06/28/18 [Rx] predniSONE [PredniSONE] 40 mg PO DAILY #8 tablet 07/28/18 [Rx] predniSONE [Prednisone] 50 mg PO DAILY #5 tablet 09/10/18 [Rx] Allergy/AdvReac Type Severity Reaction Status Date / Time No Known Allergies Allergy Verified 08/25/18 00:28 All Systems PM: A 10-system review of systems was performed and is negative for pertinent findings except as documented above in the HPI. - Constitutional Vitals: Temp Pulse Resp BP Pulse Ox 97.8 F 74 22 127/84 100 09/17/18 21:01 09/17/18 23:42 09/17/18 23:42 09/17/18 23:42 09/17/18 23:42 Exam: . Internal Med - H&P Results - Labs CBC & Chem 7: 09/17/18 21:31 09/17/18 21:31 Labs: Short CBC 09/17/18 Range/Units 21:31 WBC 7.8 (4.3-11.1) K/mcL Hgb 15.6 (12.9-16.9) g/dL Hct 45.7 (37.5-50.1) % Plt Count 264 (140-400) K/mcL Neutrophils # 6.5 (1.6-8.9) K/mcL BMP 09/17/18 21:31 Sodium 137 Potassium 4.2 Chloride 104 Carbon Dioxide 22 L BUN 18 Creatinine 0.65 L Glucose 108 H Calcium 9.7 Cardiac Enzymes 09/17/18 Range/Units 21:31 Troponin I < 0.03 (< 0.04) ng/mL - Impressions ITS Impressions Chest X-Ray 09/17/18 21:06 IMPRESSION: No radiographic evidence of acute cardiopulmonary process. D/ / Feliberto Dahl MD / Feliberto Dahl MD Interpreting Provider: Feliberto Dahl MD - Time Spent With Patient Total time spent is greater than 50% in coordination of care (as documented) at patient's floor/unit and/or counseling patient: Greater than 35 minutes
[2018-09-18 01:10] LABS: Amphetamine Screen,Urine Negative ng/mL (Cutoff=1000); Barbiturate Screen,Urine Negative ng/mL (Cutoff=200); Benzodiazepines Screen,Urine Negative ng/mL (Cutoff=200); Cannabinoid Screen,Urine Positive ng/mL (Cutoff = 50); Cocaine Screen,Urine Negative ng/mL (Cutoff= 300); Opiate Screen,Urine Negative ng/mL (Cutoff=300); Phencyclidine Screen,Urine Negative ng/mL (Cutoff=25)
[2018-09-18] MEDS: *HR* Heparin 5,000 UNIT/ML VIAL SQ SCH ×3 (06:05→21:36)
[2018-09-18] MEDS: predniSONE 20 MG TABLET PO SCH (07:25)
[2018-09-18] MEDS: ALPRAZolam 0.5 MG TABLET PO PRN ×3 (07:28→23:41)
--- NOTE | 2018-09-18 11:30 | Event Note ---
Date of Encounter: 09/18/18 Time of Encounter: 11:13 Patient was seen and examined at bedside he was seen earlier this morning by hospitalist services. Currently patient does appear to be very anxious at times tearful expressing fear concerning -states he has been experiencing increasing shortness of breath as well as anxiety home he also experiences chest pain left-sided radiating to L arm -troponins have been negative 3 he did undergo a stress test approx year ago which was negative for ischemia-during conversation patient became short of breath-and is crying- no wheezing noted. He states he does have an appointment next month with mental health for anxiety. We will continue with home medications for now as well as steroids. Continue with oxygen as needed-stress test
[2018-09-18] MEDS: Ondansetron ODT 4 MG TAB.RAPDIS PO PRN (15:19)
[2018-09-18] MEDS: Levalbuterol Neb 1.25 MG/3 ML IH PRN (15:33)
[2018-09-18] MEDS: traMADol 50 MG TABLET PO PRN (19:38)
[2018-09-18] MEDS ORDERED: BUSPIRONE HCL 10 MG TABLET PO SCH (21:00)
[2018-09-19] MEDS: *HR* Heparin 5,000 UNIT/ML VIAL SQ SCH (05:28)
[2018-09-19] MEDS: Ondansetron ODT 4 MG TAB.RAPDIS PO PRN (09:02)
[2018-09-19] MEDS: traMADol 50 MG TABLET PO PRN (09:03)
[2018-09-19] MEDS: predniSONE 20 MG TABLET PO SCH (09:04)
[2018-09-19] MEDS: ALPRAZolam 0.5 MG TABLET PO PRN (09:06)
[2018-09-19] MEDS: Levalbuterol Neb 1.25 MG/3 ML IH PRN (09:24)
[2018-09-19 11:46] VITALS: BP 98/56
--- NOTE | 2018-09-19 13:43 | Discharge Summary ---
Orders not resulted at time of discharge: Pending orders 09/18/18 15:48 NM jeremy perf SPECT multi [NM] Routine 09/19/18 06:00 EKG [ECG 12 lead ECG] [ECG] AM 0600 Date of Encounter: 09/19/18 Time of Encounter: 13:39 Hospital course: Mr. Givens is a 42 year old male past mental history of substance abuse anxiety undergoing diagnosis for COPD resented to [facility] ED with multiple complaints including shortness of breath and chest pain he has been seen several times in the past few months for similar complaints. He did present to the ER on 09/09/2018 with complaints of shortness of breath and left-sided chest pain as well as anxiety but he did go home. He presented on 09/18/2018 which was of breath and chest pain on the left side as well as left arm pain. He is currently being treated for anxiety he does express that he has high anxiety concerning since his mother at 44 from lung cancer and that he is a smoker. He denies any fevers chills or productive cough. Lab work was unremarkable d-dimer was less than 200 chest x-ray with no infiltrates or signs of emphysema. He was given Ativan prior to admission as well as aspirin and steroids. During admission patient did have episodes of anxiety and stress and difficulty breathing his lung sounds are clear at this time he did undergo stress test which was negative for ischemia or infarct. Respiratory state is stable at this time no wheezing or rhonchi he did complete a walk test and did not qualify for any home oxygen. She has had multiple visits to the ER with anxiety states that currently he is down to 2 Ativan tablets at home I did perform an [facility] report- will prescribe 3 days of Xanax 0.5mg -advised patient to follow-up with primary care provider as well as mental health states he has no appointment 2 weeks with mental health. He is hemodynamically stable at this time is ready for discharge. - Time Spent with Patient Total time spent providing and/or coordinating discharge services: - Discharge Medications Prescriptions: New predniSONE [PredniSONE] 40 mg PO DAILY 3 Days #6 tablet ALPRAZolam [Xanax 0.5 MG Tablet] 0.5 mg PO BID PRN 3 Days #6 tablet PRN Reason: Anxiety Changed ALPRAZolam [Xanax 1 MG Tablet] 1 mg PO BID PRN 3 Days #6 tablet PRN Reason: Anxiety No Action Citalopram Hydrobromide [Celexa] 40 mg PO DAILY Dicyclomine [Bentyl] 20 mg PO DAILY Metoclopramide [Reglan] 10 mg PO TID PRN PRN Reason: Nausea And Vomiting Ondansetron HCl [Zofran] 4 mg PO Q4H PRN PRN Reason: Nausea Pantoprazole Sodium [Protonix] 40 mg PO DAILY Promethazine [Phenergan] 25 mg PO DAILY predniSONE [Prednisone] 50 mg PO DAILY HydrOXYzine 10 mg PO TID PRN PRN Reason: Anxiety Aspirin Enteric Coated [Aspirin EC] 81 mg PO DAILY Ibuprofen 800 mg PO TID PRN PRN Reason: Pain Home Medications: Citalopram Hydrobromide [Celexa] 40 mg PO DAILY 12/06/17 [History] Dicyclomine [Bentyl] 20 mg PO DAILY 12/06/17 [History] Metoclopramide [Reglan] 10 mg PO TID PRN 12/06/17 [History] Ondansetron HCl [Zofran] 4 mg PO Q4H PRN 12/06/17 [History] Pantoprazole Sodium [Protonix] 40 mg PO DAILY 12/06/17 [History] Promethazine [Phenergan] 25 mg PO DAILY 12/06/17 [History] Aspirin Enteric Coated [Aspirin EC] 81 mg PO DAILY 09/18/18 [History] HydrOXYzine 10 mg PO TID PRN 09/18/18 [History] Ibuprofen 800 mg PO TID PRN 09/18/18 [History] predniSONE [Prednisone] 50 mg PO DAILY 09/18/18 [History] ALPRAZolam [Xanax 0.5 MG Tablet] 0.5 mg PO BID PRN 3 Days #6 tablet 09/19/18 [Rx] ALPRAZolam [Xanax 1 MG Tablet] 1 mg PO BID PRN 3 Days #6 tablet 09/19/18 [Rx] predniSONE [PredniSONE] 40 mg PO DAILY 3 Days #6 tablet 09/19/18 [Rx] Allergies/Adverse Reactions: Allergy/AdvReac Type Severity Reaction Status Date / Time No Known Allergies Allergy Verified 08/25/18 00:28 Date of admission: 09/18/18 00:03 Primary care physician: Tyler Irwin Jr, Consults: 09/18/18 09:11 Consult to Nurse Navigator [CONS] Routine Comment: POSSIBLE COPD - Constitutional Vitals: Temp Pulse Resp BP Pulse Ox 97.9 F 62 17 98/56 96 09/19/18 11:44 09/19/18 11:44 09/19/18 11:44 09/19/18 11:44 09/19/18 11:44 Exam: Skin: Free of rash and discoloration. Eyes: Sclera is white. There is no discharge from eyes. ENMT: Oral/pharyngeal mucosa is normal in appearance. There is no discharge from nose or ears. Respiratory: Normal breath sounds with no crackles and wheezes bilaterally. CV: Heart is regular with no gallop or murmur. GI: Abdomen is flat and soft with no palpable mass or visceromegaly. : There is no tenderness in patient's flanks bilaterally. Neuro exam: He has good strength in upper and lower extremities. He has normal eye movements. Psychiatric: He has normal affect. His thought process is appropriate to the situation. - Patient Status Disposition: Home, Self-Care Condition: Fair Functional capacity at discharge: independent ambulation Overall status at discharge: patient is back to baseline - Discharge Instructions Instructions: Chest Pain (DC), Chronic Obstructive Pulmonary Disease (DC), Anxiety (DC) Follow Up With: Tyler Irwin Jr, MD [Primary Care Provider] - (Left message for Dr. Irwin's office for hospital follow up appt. Please call the office for a hospital follow up in 7-10 days.) Forms: ED Satisfaction Letter - Diet and Activity Activity: increase activity as tolerated Diet: advance to your usual diet
--- NOTE | 2018-09-19 15:20 | Electrocardiograph Report ---
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
== END 2018-09-19 14:23 | disposition home or self-care (01) ==
LOC: 3BNU 20:58 → EMEROOARM 20:58 → 3BNU 09-18 01:01
PROVIDERS: ADMIT Internal Medicine; ATTEND Internal Medicine

== ENCOUNTER 2018-12-14 12:26 | Observation (INO) ==
[2018-12-14] MEDS ORDERED: Haloperidol Lactate 5 MG/ML VIAL IVP ONE (13:10)
[2018-12-14] MEDS ORDERED: 0.9 % Sodium Chloride 1,000 ML IVC ONE (13:10)
[2018-12-14] MEDS ORDERED: Metoclopramide 10 MG/2 ML VIAL IVP STA (13:11)
--- NOTE | 2018-12-14 13:14 | Emergency Department Note ---
Disposition Clinical Impression: Intractable abdominal pain, Gastroparesis, Vomiting Disposition: Admitted As Inpatient Condition: Fair Referrals: Tyler Irwin Jr, MD [Primary Care Provider] - Forms: ED Satisfaction Letter, Work/School Release Time of Disposition: 15:09 General Adult HPI - General Chief complaint: ED Abdominal Pain Stated complaint: abdominal/chest pain Time Seen by Provider: 12/14/18 12:30 Source: patient, EMS Limitations: no limitations Nursing Notes Reviewed: Yes Vital Signs Reviewed: Yes - History of Present Illness HPI Narrative: Presents with blood in the stool which is bright red and occurred 5 times today at home and also epigastric pain for the last 5 days which is severe and sharp and radiates inferiorly and does have associated vomiting and vomited about 20 times today. I did review the previous record. Has had Botox injections in the stomach from the design specialist. Denies any blood in the vomit. Does have some lightheadedness which is not new. Social history: No smoking or alcohol or drugs but does marijuana about twice Pain Scale: 10 - Related Data Home Medications Medication Instructions Recorded Confirmed Citalopram Hydrobromide [Celexa] 20 mg PO DAILY 12/06/17 12/14/18 Metoclopramide [Reglan] 10 mg PO TID PRN 12/06/17 12/14/18 Pantoprazole Sodium [Protonix] 40 mg PO DAILY 12/06/17 12/14/18 Promethazine [Phenergan] 25 mg PO DAILY 12/06/17 12/14/18 LORazepam [Ativan] 1 mg PO BID 09/26/18 12/14/18 Allergies Allergy/AdvReac Type Severity Reaction Status Date / Time No Known Allergies Allergy Verified 11/13/18 11:09 All systems ED: reviewed and negative except as stated. Past Medical History - Past Medical History Medical history: Reports: asthma, COPD, GERD, kidney stones, other Surgical history: Reports: cholecystectomy, tonsillectomy Psychiatric history: Reports: anxiety, depression - Social History Smoking Status: Current every day smoker Smokeless Tobacco Status: No Alcohol use: Reports: none Drug use: Reports: marijuana Physical Exam CONSTITUTIONAL: Alert and oriented X3, well-nourished, well appearing, in no apparent distress HEAD: Normocephalic; atraumatic. EYES: PERRL, no scleral icterus. NOSE: The nose is normal in appearance without rhinorrhea RESP: Normal chest excursion with respiration; breath sounds clear and equal bilaterally; no wheezes, rhonchi, or rales CARD: Regular rhythm, without murmurs, rub or gallop ABD: Non-distended; moderate discomfort palpation epigastric region but soft without rigidity, rebound, guarding, very minimal discomfort palpation suprapubic area, the entire abdomen is soft without rigidity, rebound, guarding SKIN: Normal for age and race; warm and dry; no apparent lesions - General Limitations: no limitations General appearance: alert, in no apparent distress Course Vital Signs Temperature 99.1 F 12/14/18 12:41 Pulse Rate 76 12/14/18 12:41 Respiratory Rate 18 12/14/18 12:41 Blood Pressure 134/105 12/14/18 12:41 O2 Sat by Pulse Oximetry 99 12/14/18 12:41 Temperature 99.1 F 12/14/18 12:41 Pulse Rate 64 12/14/18 15:05 Respiratory Rate 16 12/14/18 15:05 Blood Pressure 143/96 12/14/18 13:27 O2 Sat by Pulse Oximetry 96 12/14/18 15:05 Oxygen Delivery Oxygen Delivery Room Air Medical Decision Making - MDM Narrative Medical decision making narrative: Patient does have intermittent tearfulness, his color is good, breathing comfortably, testing includes labs, IV fluids, IV Haldol, IV Reglan, stool testing, will reassess after medications. The patient did have CT scans of the abdomen to within the last several months without acute abnormality 1314 I spoke w Suyapa who works w Dr. Belcher and she would like the pt discharged and to b seen on Tuesday by herself or Dr. Belcher. She is aware of seeing pt to consider getting set up for more botox injections in the stomach 1349 I did go back and reassessed the patient. States that he will return tomorrow for sent him home today. I did speak again with Suyapa from GI who is the nurse practitioner will like to have the patient minutes medicine and they will consult. I will turn in the consult right now. The patient does take Ativan 1 mg twice a day at home so I will give her 1 dose of Ativan IV. Per the nurse the patient has had 28 visits to the ED so far this year. 1508 I did speak with the hospitalist and she is going down to speak with the patient at this time and then will consult with GI regarding disposition 1534 I did speak with the hospitalist who accepts the patient for admission 1542 - Medical Records Medical records reviewed: Yes I reviewed the patient's medical records. - Lab Data Lab results reviewed: Yes I reviewed the patient's lab results. Result diagrams: 12/14/18 13:04 12/14/18 13:04 Lab Results 12/14/18 12/14/18 12/14/18 Range/Units 13:04 13:04 13:04 WBC 7.1 (4.3-11.1) K/mcL RBC 5.12 (4.19-5.50) M/mcL Hgb 16.3 (12.9-16.9) g/dL Hct 47.8 (37.5-50.1) % MCV 93.4 (83.0-100.0) fL MCH 31.8 (28.0-33.3) pg MCHC 34.1 (31.6-35.5) g/dL RDW 13.0 (11.5-14.5) % Plt Count 257 (140-400) K/mcL MPV 8.5 L (9.4-12.4) fL Sodium 135 L (136-145) mEq/L Potassium 4.0 (3.5-5.1) mEq/L Chloride 106 (98-107) mEq/L Carbon Dioxide 21 L (23-29) mEq/L BUN 21 H (6-20) mg/dL Creatinine 0.81 (0.70-1.30) mg/dL Est GFR ( Amer) > 60 (> 60) Est GFR (Non-Af Amer) > 60 (> 60) BUN/Creatinine Ratio 26 (6-26) Glucose 99 (70-105) mg/dL Calculated Osmolality 283 (280-300) Calcium 9.5 (8.6-10.3) mg/dL Total Bilirubin 0.9 (0.3-1.0) mg/dL Direct Bilirubin 0.1 (0.0-0.2) mg/dL Indirect Bilirubin 0.8 (0.0-1.2) mg/dL AST 21 (13-39) Units/L ALT 20 (7-52) Units/L Alkaline Phosphatase 59 (34-104) Units/L Serum Total Protein 7.1 (6.4-8.9) g/dL Albumin 4.5 (3.5-5.7) g/dL Globulin 2.6 (2.4-3.5) g/dL Albumin/Globulin Ratio 1.7 (1.1-2.2) Lipase 14 (11-82) Units/L Stool Occult Bld Scrn (Negative) Blood Type A POSITIVE Antibody Screen NEGATIVE 12/14/18 Range/Units 13:04 WBC (4.3-11.1) K/mcL RBC (4.19-5.50) M/mcL Hgb (12.9-16.9) g/dL Hct (37.5-50.1) % MCV (83.0-100.0) fL MCH (28.0-33.3) pg MCHC (31.6-35.5) g/dL RDW (11.5-14.5) % Plt Count (140-400) K/mcL MPV (9.4-12.4) fL Sodium (136-145) mEq/L Potassium (3.5-5.1) mEq/L Chloride (98-107) mEq/L Carbon Dioxide (23-29) mEq/L BUN (6-20) mg/dL Creatinine (0.70-1.30) mg/dL Est GFR ( Amer) (> 60) Est GFR (Non-Af Amer) (> 60) BUN/Creatinine Ratio (6-26) Glucose (70-105) mg/dL Calculated Osmolality (280-300) Calcium (8.6-10.3) mg/dL Total Bilirubin (0.3-1.0) mg/dL Direct Bilirubin (0.0-0.2) mg/dL Indirect Bilirubin (0.0-1.2) mg/dL AST (13-39) Units/L ALT (7-52) Units/L Alkaline Phosphatase (34-104) Units/L Serum Total Protein (6.4-8.9) g/dL Albumin (3.5-5.7) g/dL Globulin (2.4-3.5) g/dL Albumin/Globulin Ratio (1.1-2.2) Lipase (11-82) Units/L Stool Occult Bld Scrn Positive A (Negative) Blood Type Antibody Screen - Radiology Data Radiology results reviewed: Yes I reviewed the patient's radiology results.
[2018-12-14 13:30] LABS: Hematocrit 47.8 % (37.5-50.1); Hemoglobin 16.3 g/dL (12.9-16.9); Mean Corpuscular HGB Conc 34.1 g/dL (31.6-35.5); Mean Corpuscular Hemoglobin 31.8 pg (28.0-33.3); Mean Corpuscular Volume 93.4 fL (83.0-100.0); Mean Platelet Volume 8.5 fL (9.4-12.4); Platelet Count 257 K/mcL (140-400); Red Blood Count 5.12 M/mcL (4.19-5.50); White Blood Count 7.1 K/mcL (4.3-11.1)
[2018-12-14 13:38] LABS: Alanine Aminotransferase 20 Units/L (7-52); Albumin 4.5 g/dL (3.5-5.7); Albumin/Globulin Ratio 1.7 (1.1-2.2); Alkaline Phosphatase 59 Units/L (34-104); Aspartate Amino Transferase 21 Units/L (13-39); BUN/Creatinine Ratio 26 (6-26); Bilirubin,Direct 0.1 mg/dL (0.0-0.2); Bilirubin,Indirect 0.8 mg/dL (0.0-1.2); Bilirubin,Total 0.9 mg/dL (0.3-1.0); Blood Urea Nitrogen 21 mg/dL (6-20); Calcium 9.5 mg/dL (8.6-10.3); Carbon Dioxide 21 mEq/L (23-29); Chloride 106 mEq/L (98-107); Globulin 2.6 g/dL (2.4-3.5); Glucose 99 mg/dL (70-105); Lipase 14 Units/L (11-82); Osmolality,Calculated 283 (280-300); Sodium 135 mEq/L (136-145); Total Protein 7.1 g/dL (6.4-8.9); eGFR For African Americans > 60 (> 60); eGFR For Non-African Americans > 60 (> 60)
[2018-12-14] MEDS ORDERED: *HR* LORazepam 2 MG/ML VIAL IVP ONE ×2 (14:50→20:10)
--- NOTE | 2018-12-14 16:28 | Internal Med History&Physical ---
Date of Encounter: 12/14/18 Time of Encounter: 16:28 Internal Medicine - H&P: HPI Chief complaint: epigastric pain History of present illness: Mr. Givens is a 43 year old male Presents with blood in the stool which is bright red and occurred 5 times today at home and also epigastric pain for the last 5 days which is severe and sharp and radiates inferiorly and does have associated vomiting and vomited about 20 times today. The patient has history of gastroparesis, status post Botox injection in the stomach. The patient was evaluated by the ER staff did contact GI team for further evaluation and management, we will see the patient in Past Med Surg Social Fam HX - Past Medical History Medical history: asthma, COPD, GERD, kidney stones, other Additional medical history: gastropareisis Psychiatric history: anxiety, depression - Past Surgical History Surgical History: cholecystectomy, tonsillectomy Additional surgical history: endoscopy with botox - Social History Smoking Status: Current every day smoker Smokeless Tobacco Status: No Alcohol use: none Drug use: marijuana - Family History Father Living Status: Hx Family Cardiac Disorders: No Hx Family Respiratory Disorders: No Hx Family Cancer: Yes (Lung) Hx Family GI Disorders: No Hx Family Endocrine Disorder: No Hx Family Neuromuscular Disorders: No Hx Family Neurologic Disorders: No Hx Family HEENT Disorders: No Hx Family Autoimmune Disorders: No Sister Hx Family Respiratory Disorders: Yes (COPD) Mother Adopted: No Family Member Ethnicity: Non- Living Status: Hx Family Cardiac Disorders: No Hx Family Respiratory Disorders: No Hx Family Cancer: Yes (Lung Cancer) Hx Family GI Disorders: Yes Hx Family Endocrine Disorder: No Hx Family Neuromuscular Disorders: No Hx Family Neurologic Disorders: No Hx Family HEENT Disorders: No Hx Family Autoimmune Disorders: No Internal Medicine - H&P: Meds Citalopram Hydrobromide [Celexa] 20 mg PO DAILY 12/06/17 [History] Metoclopramide [Reglan] 10 mg PO TID PRN 12/06/17 [History] Pantoprazole Sodium [Protonix] 40 mg PO DAILY 12/06/17 [History] Promethazine [Phenergan] 25 mg PO DAILY 12/06/17 [History] LORazepam [Ativan] 1 mg PO BID 09/26/18 [History] Cholecalciferol (D-3) [Vitamin D] 2,000 unit PO DAILY 12/14/18 [History] Dicyclomine Hcl [Bentyl] 20 mg PO BID 12/14/18 [History] Fluticasone/Salmeterol [Advair Hfa 230-21 Mcg Inhaler] 2 inh IH BID 12/14/18 [History] Hyoscyamine SL [Levsin Sl] 0.125 mg SL TID PRN 12/14/18 [History] Mirtazapine [Remeron] 15 mg PO HS 12/14/18 [History] Ondansetron ODT [Zofran ODT] 4 mg SL Q4HR PRN 12/14/18 [History] Allergy/AdvReac Type Severity Reaction Status Date / Time No Known Allergies Allergy Verified 11/13/18 11:09 All Systems PM: A 10-system review of systems was performed and is negative for pertinent findings except as documented above in the HPI. - Constitutional Vitals: Temp Pulse Resp BP Pulse Ox 99.1 F 64 16 150/100 96 12/14/18 12:41 12/14/18 15:05 12/14/18 16:17 12/14/18 16:17 12/14/18 15:05 General appearance: Present: A&O X 3 Exam: . - Head Head exam: Present: atraumatic, normocephalic - Neck Neck exam general surgery: Present: supple, trachea midline. Absent: lymphadenopathy - Respiratory Respiratory exam: Present: CTAB. Absent: accessory muscle use, rales, rhonchi, wheezes - Cardiovascular Cardiovascular exam: Present: RRR, +S1, +S2. Absent: diastolic murmur, gallop, rubs, systolic murmur - GI/Abdominal GI/Abdominal exam: Present: normal bowel sounds, soft, no peritoneal signs. Absent: distended, tenderness - Neurological Exam Neurological exam: Present: CN II-XII intact, oriented X3, no focal deficits. Absent: pronater drift, facial droop, speech deficit Internal Med - H&P Results - Labs CBC & Chem 7: 12/15/18 05:44 12/15/18 05:44 Labs: Short CBC 12/14/18 Range/Units 13:04 WBC 7.1 (4.3-11.1) K/mcL Hgb 16.3 (12.9-16.9) g/dL Hct 47.8 (37.5-50.1) % Plt Count 257 (140-400) K/mcL BMP 12/14/18 13:04 Sodium 135 L Potassium 4.0 Chloride 106 Carbon Dioxide 21 L BUN 21 H Creatinine 0.81 Glucose 99 Calcium 9.5 Liver Function 12/14/18 Range/Units 13:04 Total Bilirubin 0.9 (0.3-1.0) mg/dL Direct Bilirubin 0.1 (0.0-0.2) mg/dL AST 21 (13-39) Units/L ALT 20 (7-52) Units/L Alkaline Phosphatase 59 (34-104) Units/L Albumin 4.5 (3.5-5.7) g/dL - Assessment and Plan (1) Intractable abdominal pain Status: Acute Assessment and plan: Most likely 2/2 Gastroparesis, Patient states he had a history of Botox injections to the stomach that had worked in the past. GI consulted for EGD with Botox injections. (2) Gastroparesis Status: Acute Assessment and plan: See # 1 (3) Vomiting Status: Acute Assessment and plan: Starting antisemitics Qualifiers: Qualified Code(s): R11.10 - Vomiting, unspecified (4) Anxiety Status: Acute (5) DVT prophylaxis Status: Acute - Time Spent With Patient Total time spent is greater than 50% in coordination of care (as documented) at patient's floor/unit and/or counseling patient:
[2018-12-14] MEDS ORDERED: Naloxone 0.4 MG/ML INJ IVP PRN (17:24)
[2018-12-14] MEDS: Ringers Solution, Lactated 1,000 ML IVC SCH (17:41)
[2018-12-14] MEDS: Ondansetron 4 MG/2 ML VIAL IVP PRN (17:41)
[2018-12-14] MEDS: Ketorolac 15 MG/ML VIAL IVP PRN (17:41)
[2018-12-14] MEDS ORDERED: Acetaminophen IV 500 MG/50 ML INFUS..BTL IVPB ONE (20:11)
[2018-12-14 21:34] LABS: Bilirubin,Urine Small (Negative); Blood,Urine Negative (Negative); Clarity,Urine Clear (Clear); Color,Urine Dark Yellow (Yellow); Glucose,Urine (UA) Normal (Normal); Ketones,Urine 15 mg/dL (Negative); Leukocyte Esterase,Urine Negative (Negative); Nitrite,Urine Negative (Negative); PH,Urine 5.5 pH Units (5.0-8.0); Protein,Urine Trace mg/dL (Neg-Trace); Specific Gravity,Urine > 1.030 (1.010-1.025); Urobilinogen,Urine Normal (Normal)
[2018-12-15] MEDS: Ringers Solution, Lactated 1,000 ML IVC SCH (02:15)
[2018-12-15 06:06] LABS: Basophils % 0.5 %; Eosinophils # 0.1 K/mcL (0.0-0.6); Eosinophils % 1.8 %; Hematocrit 43.7 % (37.5-50.1); Immature Granulocytes % 0.4 % (0-4); Lymphocytes # 2.2 K/mcL (0.6-4.6); Lymphocytes % 40.3 %; Mean Corpuscular Volume 97.1 fL (83.0-100.0); Mean Platelet Volume 8.6 fL (9.4-12.4); Monocytes # 0.5 K/mcL (0.0-1.3); Monocytes % 8.1 %; Neutrophils # 2.7 K/mcL (1.6-8.9); Platelet Count 204 K/mcL (140-400); Red Cell Distribution Width 12.8 % (11.5-14.5); Segmented Neutrophils % 48.9 %; White Blood Count 5.5 K/mcL (4.3-11.1)
[2018-12-15 06:07] LABS: Hemoglobin 14.4 g/dL (12.9-16.9)
[2018-12-15 06:12] LABS: INR 1.1; Prothrombin Time 12.5 Seconds (9.4-12.1)
[2018-12-15 06:15] LABS: Activated Partial Thrombo Time 29.2 Seconds (26.0-36.0)
[2018-12-15 06:27] LABS: Alanine Aminotransferase 18 Units/L (7-52); Albumin 3.6 g/dL (3.5-5.7); Albumin/Globulin Ratio 1.6 (1.1-2.2); Alkaline Phosphatase 52 Units/L (34-104); Aspartate Amino Transferase 18 Units/L (13-39); BUN/Creatinine Ratio 22 (6-26); Bilirubin,Total 1.1 mg/dL (0.3-1.0); Blood Urea Nitrogen 17 mg/dL (6-20); Calcium 8.7 mg/dL (8.6-10.3); Carbon Dioxide 23 mEq/L (23-29); Chloride 106 mEq/L (98-107); Chol/HDL Ratio 5.8 (0-4.9); Cholesterol 187 mg/dL (< 200); Globulin 2.2 g/dL (2.4-3.5); Glucose 94 mg/dL (70-105); HDL Cholesterol 32 mg/dL (40-59); LDL Cholesterol,Calculated 119 mg/dL (0-99); Magnesium 1.7 mg/dL (1.6-2.6); Osmolality,Calculated 291 (280-300); Potassium 3.9 mEq/L (3.5-5.1); Sodium 140 mEq/L (136-145); Total Protein 5.8 g/dL (6.4-8.9); Triglycerides 178 mg/dL (< 150); eGFR For African Americans > 60 (> 60); eGFR For Non-African Americans > 60 (> 60)
[2018-12-15] MEDS: Ketorolac 15 MG/ML VIAL IVP PRN (06:36)
[2018-12-15] MEDS: Ondansetron 4 MG/2 ML VIAL IVP PRN (07:06)
[2018-12-15] MEDS ORDERED: *HR* Propofol 200 MG/20 ML VIAL IVP ONE ×2 (08:20→08:52)
--- NOTE | 2018-12-15 09:10 | Gastroenterology Consult Note ---
<Sandra Gil - Last Filed: 12/15/18 09:08> Date of Encounter: 12/15/18 Time of Encounter: 08:50 - Assessment and plan (1) Intractable nausea and vomiting Current Visit: No Status: Acute Assessment and plan: Pt complains of chronic nausea and vomiting. He is maximized on medications at home. He has had multiple ER visits for the same complaints over the years. He does report some relief with botox injections in his stomach, was last done 04/09. Will proceed with EGD and botox injections today. Qualifiers: Vomiting type: unspecified Qualified Code(s): R11.2 - Nausea with vomiting, unspecified (2) Epigastric pain Current Visit: No Status: Acute (3) Gastroparesis Current Visit: No Status: Chronic (4) Diarrhea Current Visit: Yes Status: Acute Qualifiers: Diarrhea type: unspecified type Qualified Code(s): R19.7 - Diarrhea, unspecified (5) Lower abdominal pain, unspecified Current Visit: Yes Status: Acute Assessment and plan: Will check stool studies, CT abdomen 11/08 showed thickening of the sigmoid colon. May need repeat colonosocpy but can be done as an outpatient. - Time Spent With Patient Total time spent is greater than 50% in coordination of care (as documented) at patient's floor/unit and/or counseling patient: GI History of Present Illness - Data of Consult Patient: known to practice within the last 3 years Consult date: 12/15/18 Requesting Physician: Ezio Boyer - Consult Narrative Reason for consult: gastroparesis, nausea and vomiting History of present illness: Mr. Givens is a 39 year old male with PMH of gastroparesis, GERD, and anxiety disorder. Pt presented with recurrent episodes of nausea and vomiting. He was seen in the ER twice in the past week. He says that was diagnosed with gastroparesis at the [facility] some years ago as a failed gastric emptying studies. The scopes have been negative. He states they usually admit him for in fluids and pain medicines and he feels better. Patient claims that he has been hospitalized 30 x in the past year for these symptoms. He states that he smokes marijuana 1-2 times a week. Claims that the pain in his abdomen never goes away, improves for a short period of time with IV pain medications and then recurs when he has a 'flare' of his gastroparesis. He currently takes daily PPI, Zantac, Reglan, Bentyl, Phenergan, Zofran. He also complains of some lower abdominal pain and diarrhea. He states he had some streaky bright red blood in his stool yesterday after violently retching. Procedures EGD 04/10/2018 normal esophagus, small hiatal hernia, normal stomach and duodenum, the pylorus was injected with botulinum toxin colonoscopy 12/06/2017 normal colon internal hemorrhoids. EGD 12/06/2017 normal stomach and duodenum Colonoscopy 2007 Yanira, 2014 Morales. EGD 10/02/15 Dr. Ye patiño with Botox injection. NSAIDs: None Anticoagulation: None Past Med Surg Social Fam HX - Past Medical History Medical history: asthma, COPD, GERD, kidney stones, other Additional medical history: gastroparesis Psychiatric history: anxiety, depression - Past Surgical History Surgical History: cholecystectomy, tonsillectomy Additional surgical history: endoscopy with botox - Social History Smoking Status: Current every day smoker Smokeless Tobacco Status: No Alcohol use: none Drug use: marijuana - Family History Father Living Status: Age at : 65 Hx Family Cardiac Disorders: No Hx Family Respiratory Disorders: No Hx Family Cancer: Yes (throat and lung) Hx Family GI Disorders: No Hx Family Endocrine Disorder: No Hx Family Neuromuscular Disorders: No Hx Family Neurologic Disorders: No Hx Family HEENT Disorders: No Hx Family Autoimmune Disorders: No Sister Hx Family Respiratory Disorders: Yes (COPD) Mother Adopted: No Family Member Ethnicity: Non- Living Status: Age at : 44 Hx Family Cardiac Disorders: No Hx Family Respiratory Disorders: No Hx Family Cancer: Yes (Lung Cancer) Hx Family GI Disorders: Yes Hx Family Endocrine Disorder: No Hx Family Neuromuscular Disorders: No Hx Family Neurologic Disorders: No Hx Family HEENT Disorders: No Hx Family Autoimmune Disorders: No Review of Systems: GI: as per [place] GENERAL: denies fever, has some chills EYES: denies yellow discoloration ENT: denies pain with swallowing or difficulty swallowing CARDIO: see HPI RESP: No Shortness of breath with exertion : denies change in color of urine NEURO: denies any weakness HEME: Denies any bruising MS: denies joint pain, joint swelling or back pain. DERM: denies rash or itching PSYCH: history of anxiety and depression - Constitutional Vitals: Temp Pulse Resp BP Pulse Ox 97.8 F 65 22 135/88 94 12/15/18 07:46 12/15/18 07:46 12/15/18 07:46 12/15/18 07:46 12/15/18 07:46 Exam: CONSTITUTIONAL:alert, no acute distress.HEAD:normocephalic.EYES:no jaundice.NECK:no obvious swelling.HEART:regular rate and rhythm, no murmurs.LUNGS:bilateral good air entry.ABDOMEN:non distended, soft, tender epigastric area, no masses palpable, no organomegaly.RECTAL EXAM:Deferred.EXTREMITIES:no clubbing, cyanosis or edema.SKIN:no stigmata of chronic liver disease.NEUROLOGIC:no obvious focal defect Results - Labs CBC & Chem 7: 12/15/18 05:44 12/15/18 05:44 Labs: Last Result 12/15/18 05:44 Calcium 8.7 Triglycerides 178 H Entire Visit 12/15/18 12/15/18 12/15/18 05:44 05:44 05:44 Hgb 14.4 D Hct 43.7 PT 12.5 H Total Bilirubin 1.1 H AST 18 ALT 18 - ABG ABG results: PT/INR, D-dimer PT 12.5 Seconds (9.4-12.1) H 12/15/18 05:44 Consult Discharge Plan - Plan Referrals: Tyler Irwin Jr, MD [Primary Care Provider] - <[email or web address] - Last Filed: 12/15/18 09:35> Date of Encounter: 12/15/18 Time of Encounter: 09:00 - Time Spent With Patient Total time spent is greater than 50% in coordination of care (as documented) at patient's floor/unit and/or counseling patient: GI History of Present Illness - Data of Consult Requesting Physician: Ezio Boyer - Consult Narrative History of present illness: Mr. Givens is a 43 year old male - Constitutional Vitals: Temp Pulse Resp BP Pulse Ox 97.8 F 65 22 135/88 94 12/15/18 07:46 12/15/18 07:46 12/15/18 07:46 12/15/18 07:46 12/15/18 07:46 Results - Labs CBC & Chem 7: 12/15/18 05:44 12/15/18 05:44 Labs: Last Result 12/15/18 05:44 Calcium 8.7 Triglycerides 178 H Entire Visit 12/15/18 12/15/18 12/15/18 05:44 05:44 05:44 Hgb 14.4 D Hct 43.7 PT 12.5 H Total Bilirubin 1.1 H AST 18 ALT 18 - ABG ABG results: PT/INR, D-dimer PT 12.5 Seconds (9.4-12.1) H 12/15/18 05:44 - Attending Attestation I have personally performed a face to face evaluation on this patient. I have reviewed and agree with the care plan. History and Exam by me shows: Patient admitted because of intractable nausea and vomiting. On examination: Alert and awake not in distress. Abdomen is benign. Assessment patient with a history of gastroparesis with the chronic nausea and vomiting frequent ER visits the only thing that 2 out of the ER in the last 8 months was Botox injection but now in the last 2 months he symptomatic again with at least 7-10 ER visits ReC: EGD Botox today
--- NOTE | 2018-12-15 09:37 | Anesthesia Evaluation PreOp ---
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 History: Other (anxiety/depression) Other Medical History: GERD Anesthesia History: No Prior Anesthetic Complications, Past Anesthesia (tonsils, ange) Alcohol Use: none Drug use: marijuana Medications and Allergies Citalopram Hydrobromide [Celexa] 20 mg PO DAILY 12/06/17 [History] Metoclopramide [Reglan] 10 mg PO TID PRN 12/06/17 [History] Pantoprazole Sodium [Protonix] 40 mg PO DAILY 12/06/17 [History] Promethazine [Phenergan] 25 mg PO DAILY 12/06/17 [History] LORazepam [Ativan] 1 mg PO BID 09/26/18 [History] Cholecalciferol (D-3) [Vitamin D] 2,000 unit PO DAILY 12/14/18 [History] Dicyclomine Hcl [Bentyl] 20 mg PO BID 12/14/18 [History] Fluticasone/Salmeterol [Advair Hfa 230-21 Mcg Inhaler] 2 inh IH BID 12/14/18 [History] Hyoscyamine SL [Levsin SL] 0.125 mg SL TID PRN 12/14/18 [History] Mirtazapine [Remeron] 15 mg PO HS 12/14/18 [History] Ondansetron ODT [Zofran ODT] 4 mg SL Q4HR PRN 12/14/18 [History] Allergy/AdvReac Type Severity Reaction Status Date / Time No Known Allergies Allergy Verified 11/13/18 11:09 - Meds/Allergy Pre-op Review Medications Reviewed: Yes Allergies Reviewed: Yes Beta Blockers on Current Med List: No Anesthesia Results - Labs 12/15/18 05:44 12/15/18 05:44 Anesthesia Exam Selected Entries 12/15/18 07:46 12/15/18 09:34 Temperature 97.8 F Pulse Rate 65 Respiratory Rate 20 Blood Pressure 144/100 O2 Sat by Pulse Oximetry 98 Weight: 98kg NPO (# of Hours): 8 - HEENT Pupil (Motor): EOMI Mallampati: II Teeth: Normal Oral Opening: Greater than 3 - COTTON DISPATCHER LOC: Oriented COTTON DISPATCHER Motor: Normal RUE, Normal LUE, Normal RLE, Normal LLE, Normal Face COTTON DISPATCHER Sensory: Normal: RUE, LUE, RLE, LLE, Face - Cardiac Rhythm: Regular Murmur: None - Pulmonary Breath Sounds: bilateral Clear Respiratory Effort: Symmetrical - Additional Findings multiple body piercings with a lip piercing(we did make him remove this prior to sx) Anesthesia Assess/Plan ASA Score: 2 Level of consciousness: Cooperative, Oriented Anesthetic Plan: MAC Monitoring Plan: Standard Monitors Recovery Plan: Other
--- NOTE | 2018-12-15 09:41 | Internal Med Progress Note ---
Hospitalist Progress Note - Encounter Date of Encounter: 12/15/18 Time of Encounter: 09:39 - Subjective Interval History: Patient sitting up in bed upon entering room. Patient states she has not had any repeats of blood per rectum since admission. He had a small bowel movement this morning and had no evidence of blood. Patient does continue to complain of nausea and abdominal pain and states he is to have a procedure done by GI today. Patient denies diarrhea, chest pain, shortness breath, fever, chills, or leg swelling. - Exam Vitals: Temp Pulse Resp BP Pulse Ox 97.8 F 65 20 144/100 98 12/15/18 07:46 12/15/18 09:34 12/15/18 09:34 12/15/18 09:34 12/15/18 09:34 Exam: Gen: Vitals noted. No acute distress. Eyes: anicteric sclerae, moist conjunctivae HENT: Atraumatic, normocephalic, oral mucosa moist Cardiac: RRR, no murmur, +S1/S2 Pulmonary: CTA bilaterally, no wheezes, rales or rhonchi, equal chest expansion Abdomen: soft, normal bowel sounds. Mild epigastric TTP Extremities: No evidence of lower extremity swelling. Full range of motion of all extremities. Skin: warm and dry. Neuro: No focal deficits. Moves all extremities. Psych: Appropriate mood and behavior. A&Ox3 - Assessment and Plan (1) Gastroparesis Current Visit: No Status: Chronic (2) Intractable cyclical vomiting with nausea Current Visit: No Status: Resolved (3) Lower abdominal pain, unspecified Current Visit: Yes Status: Acute - Time Spent with Patient Total time spent is greater than 50% in coordination of care (as documented) at patient's floor/unit and/or counseling patient: Internal Medicine: Result - Labs CBC & Chem 7: 12/15/18 05:44 12/15/18 05:44 Labs: Short CBC 12/14/18 12/15/18 Range/Units 13:04 05:44 WBC 7.1 5.5 (4.3-11.1) K/mcL Hgb 16.3 14.4 D (12.9-16.9) g/dL Hct 47.8 43.7 (37.5-50.1) % Plt Count 257 204 (140-400) K/mcL Neutrophils # 2.7 (1.6-8.9) K/mcL BMP 12/14/18 12/15/18 13:04 05:44 Sodium 135 L 140 Potassium 4.0 3.9 Chloride 106 106 Carbon Dioxide 21 L 23 BUN 21 H 17 Creatinine 0.81 0.79 Glucose 99 94 Calcium 9.5 8.7 Liver Function 12/14/18 12/15/18 Range/Units 13:04 05:44 Total Bilirubin 0.9 1.1 H (0.3-1.0) mg/dL Direct Bilirubin 0.1 (0.0-0.2) mg/dL AST 21 18 (13-39) Units/L ALT 20 18 (7-52) Units/L Alkaline Phosphatase 59 52 (34-104) Units/L Albumin 4.5 3.6 (3.5-5.7) g/dL Urine 12/14/18 Range/Units 21:14 Urine Color Dark Yellow (Yellow) Urine Clarity Clear (Clear) Urine pH 5.5 (5.0-8.0) pH Units Ur Specific [place] > 1.030 H (1.010-1.025) Urine Protein Trace (Neg-Trace) mg/dL Urine Glucose (UA) Normal (Normal) mg/dL - ABG Interpretation ABG results: PT/INR, D-dimer PT 12.5 Seconds (9.4-12.1) H 12/15/18 05:44 Consult Discharge Plan - Plan Referrals: Tyler Irwin Jr, MD [Primary Care Provider] -
[2018-12-15] MEDS ORDERED: Ringers Solution, Lactated 500 ML IVC SCH ×2 (09:45)
[2018-12-15] MEDS ORDERED: 0.9 % Sodium Chloride 500 ML IVC SCH (09:45)
[2018-12-15 11:20] VITALS: BP 151/93
[2018-12-15] MEDS ORDERED: *HR* LORazepam 1 MG TABLET PO SCH (11:30)
--- NOTE | 2018-12-15 12:00 | Discharge Summary ---
- NOTES TO OUTPATIENT PROVIDER Notes to Outpatient Provider: Patient discharged to home after she had EGD and Botox injections by GI in the hospital. Patient will need to follow-up with GI Orders not resulted at time of discharge: Pending orders 12/15/18 09:16 Calprotectin, Fecal Routine GI Panel,Stool [MOLMIC] Routine Pancreatic Elastase, Fecal Routine 12/15/18 10:00 Surgical Pathology [PTH] Routine Date of Encounter: 12/15/18 Time of Encounter: 11:59 - Discharge Diagnosis (1) Gastroparesis Priority: Primary Status: Chronic (2) Intractable cyclical vomiting with nausea Priority: Secondary Status: Resolved (3) Lower abdominal pain, unspecified Priority: Secondary Status: Acute Hospital course: Mr. Givens is a 43 year old male with a past medical history significant for COPD, GERD, and gastroparesis. Patient states he had a stool with bright light red blood prior to coming to the hospital and had also been vomiting as many as 20 times that day. All patient's lab results were stable including a CBC and CMP. Patient states he has a known history of hemorrhoids and believes that is where the blood was from. Patient had been seen several times in the ED for similar nausea and vomiting related complaints, but his symptoms could not be controlled through medications. Patient states he had a history of Botox injections to the stomach that had worked in the past. GI consulted for the patient and performed an EGD with Botox injections on 12/15. Patient states he had immediate relief following the procedure and has no complaints at this time of nausea or vomiting. Patient also had a bowel movement while in the hospital which was negative for blood. Patient states he would like to be discharged following his procedure and was allowed to leave. Discharge discussed with: patient - Time Spent with Patient Total time spent providing and/or coordinating discharge services: - Discharge Medications Prescriptions: Continued Citalopram Hydrobromide [Celexa] 20 mg PO DAILY Metoclopramide [Reglan] 10 mg PO TID PRN PRN Reason: Nausea And Vomiting Pantoprazole Sodium [Protonix] 40 mg PO DAILY Promethazine [Phenergan] 25 mg PO DAILY LORazepam [Ativan] 1 mg PO BID Cholecalciferol (D-3) [Vitamin D] 2,000 unit PO DAILY Dicyclomine Hcl [Bentyl] 20 mg PO BID Fluticasone/Salmeterol [Advair Hfa 230-21 Mcg Inhaler] 2 inh IH BID Hyoscyamine SL [Levsin Sl] 0.125 mg SL TID PRN PRN Reason: abdominal cramping Mirtazapine [Remeron] 15 mg PO HS Ondansetron ODT [Zofran ODT] 4 mg SL Q4HR PRN PRN Reason: nausea/vomiting Home Medications: Citalopram Hydrobromide [Celexa] 20 mg PO DAILY 12/06/17 [History] Metoclopramide [Reglan] 10 mg PO TID PRN 12/06/17 [History] Pantoprazole Sodium [Protonix] 40 mg PO DAILY 12/06/17 [History] Promethazine [Phenergan] 25 mg PO DAILY 12/06/17 [History] LORazepam [Ativan] 1 mg PO BID 09/26/18 [History] Cholecalciferol (D-3) [Vitamin D] 2,000 unit PO DAILY 12/14/18 [History] Dicyclomine Hcl [Bentyl] 20 mg PO BID 12/14/18 [History] Fluticasone/Salmeterol [Advair Hfa 230-21 Mcg Inhaler] 2 inh IH BID 12/14/18 [History] Hyoscyamine SL [Levsin Sl] 0.125 mg SL TID PRN 12/14/18 [History] Mirtazapine [Remeron] 15 mg PO HS 12/14/18 [History] Ondansetron ODT [Zofran ODT] 4 mg SL Q4HR PRN 12/14/18 [History] Allergies/Adverse Reactions: Allergy/AdvReac Type Severity Reaction Status Date / Time No Known Allergies Allergy Verified 11/13/18 11:09 Date of admission: 12/14/18 15:53 Primary care physician: Tyler Irwin Jr, Consults: 12/14/18 15:41 Consult to Gastroenterology [CONS] Stat Consulting Provider: [facility] Reason for Consult: intractable pain, gastroparesis Call Completed: Yes Discharging clinician: Fredrick Cassidy - Constitutional Vitals: Temp Pulse Resp BP Pulse Ox 98.4 F 61 16 151/93 98 12/15/18 10:50 12/15/18 10:50 12/15/18 10:50 12/15/18 10:50 12/15/18 10:50 General appearance: Present: A&O X 3, no acute distress, answers questions appropriately Exam: Alert - Head Head exam: Present: atraumatic, normocephalic - Eye Eye exam: Present: EOMI. Absent: scleral icterus - ENT ENT exam: Present: mucous membranes moist, normal exam - Neck Neck exam general surgery: Present: supple, trachea midline - Respiratory Respiratory exam: Present: CTAB. Absent: chest wall tenderness, respiratory distress - Cardiovascular Cardiovascular exam: Present: RRR, +S1, +S2. Absent: diastolic murmur, systolic murmur - GI/Abdominal GI/Abdominal exam: Present: normal bowel sounds, soft. Absent: tenderness - Neurological Exam Neurological exam: Present: alert, oriented X3, no focal deficits - Psychiatric Psychiatric exam: Present: normal affect, normal mood - Patient Status Disposition: Home, Self-Care Condition: Good Functional capacity at discharge: independent ambulation Overall status at discharge: patient is back to baseline - Discharge Instructions Instructions: Gastroparesis (DC) Follow Up With: Tyler Irwin Jr, MD [Primary Care Provider] - - Diet and Activity Activity: increase activity as tolerated Diet: advance to your usual diet
== END 2018-12-15 14:23 | disposition home or self-care (01) ==
LOC: EMEROOARM 12:26 → 3ANU 12:26 → SUATTDRO 15:53 → 3ANU 16:58
PROVIDERS: ADMIT Internal Medicine Nephrology; ATTEND Internal Medicine
PROC: ENDOEBX (2018-12-15 12:00)

== ENCOUNTER 2019-03-07 15:30 | Observation (INO) ==
[2019-03-07] MEDS ORDERED: Ondansetron 4 MG/2 ML VIAL IVP STA (15:39)
[2019-03-07] MEDS ORDERED: 0.9 % Sodium Chloride 1,000 ML IVC STA ×2 (15:39→18:51)
[2019-03-07] MEDS ORDERED: *HR* LORazepam 0.5 MG TABLET PO ONE (16:06)
[2019-03-07] MEDS ORDERED: Ketorolac 15 MG/ML VIAL IVP ONE (16:06)
[2019-03-07 16:19] LABS: BUN/Creatinine Ratio 16 (6-26); Blood Urea Nitrogen 12 mg/dL (6-20); Carbon Dioxide 22 mEq/L (23-29); Chloride 105 mEq/L (98-107); Glucose 111 mg/dL (70-105); Osmolality,Calculated 286 (280-300); Potassium 3.9 mEq/L (3.5-5.1); Sodium 138 mEq/L (136-145); eGFR For African Americans > 60 (> 60); eGFR For Non-African Americans > 60 (> 60)
[2019-03-07] MEDS ORDERED: Dicyclomine 20 MG/2 ML AMPUL IM ONE (16:32)
[2019-03-07] MEDS ORDERED: Famotidine 20 MG TABLET PO ONE (17:25)
[2019-03-07 18:31] LABS: Basophils % 0.4 %; Eosinophils # 0.1 K/mcL (0.0-0.6); Eosinophils % 1.1 %; Hematocrit 47.4 % (37.5-50.1); Hemoglobin 16.3 g/dL (12.9-16.9); Immature Granulocytes % 0.3 % (0-4); Lymphocytes # 1.9 K/mcL (0.6-4.6); Lymphocytes % 20.5 %; Mean Corpuscular HGB Conc 34.4 g/dL (31.6-35.5); Mean Corpuscular Hemoglobin 31.8 pg (28.0-33.3); Mean Corpuscular Volume 92.6 fL (83.0-100.0); Mean Platelet Volume 9.6 fL (9.4-12.4); Monocytes # 0.5 K/mcL (0.0-1.3); Monocytes % 5.5 %; Neutrophils # 6.6 K/mcL (1.6-8.9); Platelet Count 315 K/mcL (140-400); Red Blood Count 5.12 M/mcL (4.19-5.50); Segmented Neutrophils % 72.2 %
[2019-03-07 18:32] LABS: White Blood Count 9.2 K/mcL (4.3-11.1)
[2019-03-07 18:38] LABS: Lipase 9 Units/L (11-82)
[2019-03-07] MEDS ORDERED: Capsaicin 0.025% 60 GM TUBE TP ONE (18:50)
[2019-03-07] MEDS ORDERED: Metoclopramide 10 MG/2 ML VIAL IVP ONE (21:13)
[2019-03-07] MEDS ORDERED: *HR* LORazepam 2 MG/ML VIAL IVP ONE (21:13)
[2019-03-07] MEDS ORDERED: 0.9 % Sodium Chloride 1,000 ML IVC SCH (21:30)
[2019-03-07] MEDS ORDERED: Naloxone 0.4 MG/ML INJ IVP PRN (23:05)
[2019-03-07] MEDS: Ketorolac 15 MG/ML VIAL IVP PRN (23:51)
[2019-03-07] MEDS ORDERED: Ondansetron 4 MG/2 ML VIAL IVP PRN (23:57)
[2019-03-08] MEDS: *HR* Promethazine 25 MG/ML VIAL IVP PRN ×2 (00:10→21:58)
[2019-03-08] MEDS ORDERED: *HR* Promethazine 25 MG/ML VIAL IM PRN (01:22)
[2019-03-08 04:12] LABS: Basophils % 0.1 %; Hematocrit 42.8 % (37.5-50.1); Hemoglobin 14.5 g/dL (12.9-16.9); Immature Granulocytes % 0.4 % (0-4); Lymphocytes % 11.6 %; Mean Corpuscular HGB Conc 33.9 g/dL (31.6-35.5); Mean Corpuscular Hemoglobin 32.3 pg (28.0-33.3); Mean Corpuscular Volume 95.3 fL (83.0-100.0); Monocytes # 0.3 K/mcL (0.0-1.3); Monocytes % 3.3 %; Neutrophils # 7.1 K/mcL (1.6-8.9); Platelet Count 256 K/mcL (140-400); Red Blood Count 4.49 M/mcL (4.19-5.50); Red Cell Distribution Width 12.8 % (11.5-14.5); Segmented Neutrophils % 84.6 %; White Blood Count 8.4 K/mcL (4.3-11.1)
[2019-03-08 04:28] LABS: Alanine Aminotransferase 18 Units/L (7-52); Albumin 4.5 g/dL (3.5-5.7); Albumin/Globulin Ratio 1.9 (1.1-2.2); Alkaline Phosphatase 62 Units/L (34-104); Aspartate Amino Transferase 28 Units/L (13-39); BUN/Creatinine Ratio 24 (6-26); Bilirubin,Total 1.1 mg/dL (0.3-1.0); Blood Urea Nitrogen 16 mg/dL (6-20); Carbon Dioxide 20 mEq/L (23-29); Chloride 105 mEq/L (98-107); Globulin 2.4 g/dL (2.4-3.5); Glucose 113 mg/dL (70-105); Osmolality,Calculated 284 (280-300); Potassium 3.8 mEq/L (3.5-5.1); Sodium 136 mEq/L (136-145); Total Protein 6.9 g/dL (6.4-8.9); eGFR For African Americans > 60 (> 60); eGFR For Non-African Americans > 60 (> 60)
[2019-03-08] MEDS: Ketorolac 15 MG/ML VIAL IVP PRN ×3 (06:19→20:04)
[2019-03-08] MEDS ORDERED: *HR* LORazepam 2 MG/ML VIAL IVP PRN (09:00)
[2019-03-08 10:17] LABS: Amphetamine Screen,Urine Negative ng/mL (Cutoff=1000); Barbiturate Screen,Urine Negative ng/mL (Cutoff=200); Benzodiazepines Screen,Urine Negative ng/mL (Cutoff=200); Cannabinoid Screen,Urine Positive ng/mL (Cutoff = 50); Cocaine Screen,Urine Negative ng/mL (Cutoff= 300); Opiate Screen,Urine Negative ng/mL (Cutoff=300); Phencyclidine Screen,Urine Negative ng/mL (Cutoff=25)
[2019-03-08] MEDS: Nicotine 21 MG PATCH.TD24 TD SCH (11:33)
[2019-03-08] MEDS: *HR* LORazepam 2 MG/ML VIAL IVP PRN (18:22)
[2019-03-08] MEDS: Gabapentin 100 MG CAPSULE PO SCH (20:07)
[2019-03-08] MEDS: Hyoscyamine SL 0.125 MG TAB.SUBL SL SCH (20:07)
[2019-03-08] MEDS: Budesonide/Formoterol 160/4.5 1 PUFF INH IH SCH (22:32)
[2019-03-09 05:06] LABS: Basophils % 0.5 %; Eosinophils # 0.1 K/mcL (0.0-0.6); Hematocrit 41.7 % (37.5-50.1); Immature Granulocytes % 0.3 % (0-4); Lymphocytes % 34.7 %; Mean Corpuscular Hemoglobin 32.5 pg (28.0-33.3); Mean Corpuscular Volume 92.9 fL (83.0-100.0); Mean Platelet Volume 8.8 fL (9.4-12.4); Monocytes # 0.5 K/mcL (0.0-1.3); Monocytes % 8.2 %; Neutrophils # 3.2 K/mcL (1.6-8.9); Platelet Count 234 K/mcL (140-400); Red Blood Count 4.49 M/mcL (4.19-5.50); Red Cell Distribution Width 12.8 % (11.5-14.5); Segmented Neutrophils % 55.3 %; White Blood Count 5.7 K/mcL (4.3-11.1)
[2019-03-09 05:07] LABS: Hemoglobin 14.6 g/dL (12.9-16.9)
[2019-03-09 05:24] LABS: BUN/Creatinine Ratio 30 (6-26); Blood Urea Nitrogen 20 mg/dL (6-20); Calcium 8.9 mg/dL (8.6-10.3); Carbon Dioxide 22 mEq/L (23-29); Chloride 103 mEq/L (98-107); Glucose 80 mg/dL (70-105); Osmolality,Calculated 286 (280-300); Potassium 3.6 mEq/L (3.5-5.1); Sodium 137 mEq/L (136-145); eGFR For African Americans > 60 (> 60); eGFR For Non-African Americans > 60 (> 60)
[2019-03-09 06:37] VITALS: BP 104/63
[2019-03-09] MEDS: Budesonide/Formoterol 160/4.5 1 PUFF INH IH SCH (07:26)
[2019-03-09] MEDS: *HR* LORazepam 2 MG/ML VIAL IVP PRN (08:38)
[2019-03-09] MEDS: Hyoscyamine SL 0.125 MG TAB.SUBL SL SCH (08:39)
[2019-03-09] MEDS: Gabapentin 100 MG CAPSULE PO SCH (08:39)
[2019-03-09] MEDS: Nicotine 21 MG PATCH.TD24 TD SCH (08:39)
[2019-03-09] MEDS: Ketorolac 15 MG/ML VIAL IVP PRN (08:46)
== END 2019-03-09 11:57 | disposition home or self-care (01) ==
LOC: EMEROOARM 15:30 → 3ANU 15:30 → SUATTDRO 18:57 → 3ANU 19:39
PROVIDERS: ADMIT Internal Medicine; ATTEND Internal Medicine

== ENCOUNTER 2019-03-12 22:48 | Observation (INO) ==
[2019-03-12] MEDS ORDERED: Ondansetron 4 MG/2 ML VIAL IVP ONE (23:14)
[2019-03-12] MEDS ORDERED: 0.9 % Sodium Chloride 1,000 ML IVC ONE (23:14)
[2019-03-12 23:48] LABS: Basophils % 0.3 %; Eosinophils # 0.1 K/mcL (0.0-0.6); Eosinophils % 1.2 %; Hematocrit 42.4 % (37.5-50.1); Hemoglobin 14.7 g/dL (12.9-16.9); Immature Granulocytes % 0.3 % (0-4); Lymphocytes # 1.5 K/mcL (0.6-4.6); Lymphocytes % 22.7 %; Mean Corpuscular HGB Conc 34.7 g/dL (31.6-35.5); Mean Corpuscular Hemoglobin 32.6 pg (28.0-33.3); Mean Platelet Volume 9.2 fL (9.4-12.4); Monocytes # 0.5 K/mcL (0.0-1.3); Monocytes % 7.5 %; Neutrophils # 4.6 K/mcL (1.6-8.9); Platelet Count 251 K/mcL (140-400); Red Blood Count 4.51 M/mcL (4.19-5.50); Red Cell Distribution Width 12.9 % (11.5-14.5); White Blood Count 6.8 K/mcL (4.3-11.1)
[2019-03-13 00:06] LABS: Alanine Aminotransferase 19 Units/L (7-52); Albumin 4.3 g/dL (3.5-5.7); Albumin/Globulin Ratio 1.7 (1.1-2.2); Alkaline Phosphatase 60 Units/L (34-104); Aspartate Amino Transferase 19 Units/L (13-39); BUN/Creatinine Ratio 16 (6-26); Bilirubin,Total 0.5 mg/dL (0.3-1.0); Blood Urea Nitrogen 11 mg/dL (6-20); Calcium 9.2 mg/dL (8.6-10.3); Carbon Dioxide 23 mEq/L (23-29); Chloride 104 mEq/L (98-107); Globulin 2.5 g/dL (2.4-3.5); Glucose 128 mg/dL (70-105); Lipase 13 Units/L (11-82); Osmolality,Calculated 289 (280-300); Potassium 3.1 mEq/L (3.5-5.1); Sodium 139 mEq/L (136-145); Total Protein 6.8 g/dL (6.4-8.9); eGFR For African Americans > 60 (> 60); eGFR For Non-African Americans > 60 (> 60)
[2019-03-13] MEDS ORDERED: Potassium Chloride Elixir 20 MEQ/15 ML UDC PO ONE (00:08)
[2019-03-13 00:29] LABS: Bilirubin,Urine Negative (Negative); Blood,Urine Negative (Negative); Clarity,Urine Clear (Clear); Color,Urine Yellow (Yellow); Glucose,Urine (UA) Normal (Normal); Ketones,Urine Negative (Negative); Leukocyte Esterase,Urine Negative (Negative); Nitrite,Urine Negative (Negative); PH,Urine 8.5 pH Units (5.0-8.0); Protein,Urine Negative (Neg-Trace); Specific Gravity,Urine 1.015 (1.010-1.025); Urobilinogen,Urine Normal (Normal)
[2019-03-13 00:33] LABS: Troponin I < 0.03 ng/mL (< 0.04)
[2019-03-13] MEDS ORDERED: Haloperidol Lactate 5 MG/ML VIAL IVP ONE (00:35)
[2019-03-13] MEDS ORDERED: Potassium Chloride 40 MEQ, Lidocaine 1% 2 ML in 0.9 % Sodium Chloride 500 ML IVPB ONE (00:35)
[2019-03-13] MEDS ORDERED: Ondansetron 4 MG/2 ML VIAL IVP ONE (00:35)
[2019-03-13] MEDS ORDERED: *HR* LORazepam 2 MG/ML VIAL IVP ONE (00:39)
[2019-03-13] MEDS ORDERED: Isovue-370 500 ML BOTTLE IVP ONE (00:55)
[2019-03-13] MEDS ORDERED: Nicotine 2 MG GUM BC PRN (03:39)
[2019-03-13] MEDS ORDERED: Naloxone 0.4 MG/ML INJ IVP PRN (03:39)
[2019-03-13] MEDS ORDERED: Ringers Solution, Lactated 1,000 ML IVC SCH (03:45)
[2019-03-13 05:44] LABS: Basophils % 0.2 %; Eosinophils % 0.7 %; Hematocrit 40.2 % (37.5-50.1); Hemoglobin 13.3 g/dL (12.9-16.9); Immature Granulocytes % 0.4 % (0-4); Lymphocytes # 1.7 K/mcL (0.6-4.6); Lymphocytes % 30.5 %; Mean Corpuscular HGB Conc 33.1 g/dL (31.6-35.5); Mean Corpuscular Hemoglobin 31.7 pg (28.0-33.3); Mean Corpuscular Volume 95.9 fL (83.0-100.0); Mean Platelet Volume 9.6 fL (9.4-12.4); Monocytes # 0.5 K/mcL (0.0-1.3); Neutrophils # 3.3 K/mcL (1.6-8.9); Platelet Count 243 K/mcL (140-400); Red Blood Count 4.19 M/mcL (4.19-5.50); Red Cell Distribution Width 13.1 % (11.5-14.5); Segmented Neutrophils % 59.2 %; White Blood Count 5.6 K/mcL (4.3-11.1)
[2019-03-13 05:50] LABS: Prothrombin Time 11.2 Seconds (9.4-12.1)
[2019-03-13 06:23] LABS: Alanine Aminotransferase 16 Units/L (7-52); Albumin 3.7 g/dL (3.5-5.7); Albumin/Globulin Ratio 1.9 (1.1-2.2); Alkaline Phosphatase 50 Units/L (34-104); Aspartate Amino Transferase 15 Units/L (13-39); BUN/Creatinine Ratio 16 (6-26); Bilirubin,Total 0.4 mg/dL (0.3-1.0); Blood Urea Nitrogen 9 mg/dL (6-20); Calcium 8.7 mg/dL (8.6-10.3); Carbon Dioxide 25 mEq/L (23-29); Chloride 107 mEq/L (98-107); Cholesterol 149 mg/dL (< 200); Glucose 99 mg/dL (70-105); HDL Cholesterol 30 mg/dL (40-59); LDL Cholesterol,Calculated 98 mg/dL (0-99); Magnesium 1.8 mg/dL (1.6-2.6); Osmolality,Calculated 291 (280-300); Potassium 4.2 mEq/L (3.5-5.1); Sodium 141 mEq/L (136-145); Thyroid Stimulating Hormone 2.891 mcIU/mL (0.340-5.600); Total Protein 5.7 g/dL (6.4-8.9); Triglycerides 104 mg/dL (< 150); eGFR For African Americans > 60 (> 60); eGFR For Non-African Americans > 60 (> 60)
[2019-03-13] MEDS ORDERED: Acetaminophen 650 MG RECTAL SUPP RC ONE (06:27)
[2019-03-13] MEDS ORDERED: Morphine Sulfate 2 MG/ML SYRINGE IVP ONE (06:28)
[2019-03-13 08:09] LABS: Estimated Average Glucose 117 mg/dl
[2019-03-13] MEDS: Nicotine 14 MG PATCH.TD24 TD SCH (08:35)
[2019-03-13] MEDS ORDERED: hydrOXYzine pamoate 25 MG CAPSULE PO PRN (11:35)
[2019-03-13] MEDS ORDERED: Metoclopramide 10 MG/2 ML VIAL IVP PRN (11:36)
[2019-03-13] MEDS: *HR* LORazepam 2 MG/ML VIAL IVP PRN ×3 (14:08→21:47)
[2019-03-13] MEDS: *HR* Heparin 5,000 UNIT/ML VIAL SQ SCH ×2 (14:10→21:37)
[2019-03-13] MEDS: Gabapentin 100 MG CAPSULE PO SCH ×2 (14:11→21:37)
[2019-03-13] MEDS: Hyoscyamine SL 0.125 MG TAB.SUBL SL SCH ×2 (14:12→21:37)
[2019-03-13] MEDS: *HR* Promethazine 25 MG/ML VIAL IVP PRN (18:08)
[2019-03-13] MEDS: Budesonide/Formoterol 160/4.5 1 PUFF INH IH SCH (19:24)
[2019-03-14] MEDS: *HR* Heparin 5,000 UNIT/ML VIAL SQ SCH (05:56)
[2019-03-14 06:37] LABS: Hematocrit 40.8 % (37.5-50.1); Hemoglobin 14.2 g/dL (12.9-16.9); Mean Corpuscular HGB Conc 34.8 g/dL (31.6-35.5); Mean Corpuscular Hemoglobin 32.6 pg (28.0-33.3); Mean Corpuscular Volume 93.6 fL (83.0-100.0); Mean Platelet Volume 9.2 fL (9.4-12.4); Platelet Count 230 K/mcL (140-400); Red Blood Count 4.36 M/mcL (4.19-5.50); Red Cell Distribution Width 13.2 % (11.5-14.5); White Blood Count 4.2 K/mcL (4.3-11.1)
[2019-03-14 06:57] LABS: BUN/Creatinine Ratio 11 (6-26); Blood Urea Nitrogen 7 mg/dL (6-20); Carbon Dioxide 27 mEq/L (23-29); Chloride 103 mEq/L (98-107); Glucose 105 mg/dL (70-105); Osmolality,Calculated 286 (280-300); Potassium 4.1 mEq/L (3.5-5.1); Sodium 139 mEq/L (136-145); eGFR For African Americans > 60 (> 60); eGFR For Non-African Americans > 60 (> 60)
[2019-03-14] MEDS: Budesonide/Formoterol 160/4.5 1 PUFF INH IH SCH (07:47)
[2019-03-14 08:31] VITALS: BP 135/91
[2019-03-14] MEDS: Hyoscyamine SL 0.125 MG TAB.SUBL SL SCH (08:51)
[2019-03-14] MEDS: Gabapentin 100 MG CAPSULE PO SCH (08:51)
[2019-03-14] MEDS: Nicotine 14 MG PATCH.TD24 TD SCH (08:52)
[2019-03-14] MEDS: *HR* Promethazine 25 MG/ML VIAL IVP PRN (08:53)
[2019-03-14] MEDS: *HR* LORazepam 2 MG/ML VIAL IVP PRN ×2 (08:56→12:52)
[2019-03-14] MEDS ORDERED: Cholecalciferol (D-3) 1,000 UNIT (25MCG) TABLET PO SCH (09:00)
== END 2019-03-14 14:02 | disposition home or self-care (01) ==
LOC: EMEROOARM 22:48 → 3BNU 22:48
PROVIDERS: ADMIT Family Medicine; ATTEND Family Medicine

== ENCOUNTER 2019-07-12 11:46 | Observation (INO) ==
[2019-07-12] MEDS ORDERED: *HR* LORazepam 2 MG/ML VIAL IVP ONE (12:11)
[2019-07-12 12:36] LABS: Hematocrit 46.7 % (37.5-50.1); Hemoglobin 15.7 g/dL (12.9-16.9); Mean Corpuscular HGB Conc 33.6 g/dL (31.6-35.5); Mean Corpuscular Hemoglobin 32.2 pg (28.0-33.3); Mean Corpuscular Volume 95.7 fL (83.0-100.0); Mean Platelet Volume 8.9 fL (9.4-12.4); Platelet Count 284 K/mcL (140-400); Red Blood Count 4.88 M/mcL (4.19-5.50); White Blood Count 8.3 K/mcL (4.3-11.1)
[2019-07-12 12:55] LABS: Alanine Aminotransferase 17 Units/L (7-52); Albumin 4.4 g/dL (3.5-5.7); Albumin/Globulin Ratio 1.6 (1.1-2.2); Alkaline Phosphatase 69 Units/L (34-104); Aspartate Amino Transferase 19 Units/L (13-39); BUN/Creatinine Ratio 20 (6-26); Bilirubin,Direct 0.1 mg/dL (0.0-0.2); Bilirubin,Indirect 0.6 mg/dL (0.0-1.0); Bilirubin,Total 0.7 mg/dL (0.3-1.0); Blood Urea Nitrogen 13 mg/dL (6-20); Calcium 9.5 mg/dL (8.6-10.3); Carbon Dioxide 25 mEq/L (23-29); Chloride 105 mEq/L (98-107); Globulin 2.7 g/dL (2.4-3.5); Glucose 108 mg/dL (70-105); Lipase 5 Units/L (11-82); Osmolality,Calculated 287 (280-300); Potassium 3.9 mEq/L (3.5-5.1); Sodium 138 mEq/L (136-145); Total Protein 7.1 g/dL (6.4-8.9); eGFR For African Americans > 60 (> 60); eGFR For Non-African Americans > 60 (> 60)
[2019-07-12 13:37] LABS: Bilirubin,Urine Negative (Negative); Blood,Urine Negative (Negative); Clarity,Urine Clear (Clear); Color,Urine Yellow (Yellow); Glucose,Urine (UA) Normal (Normal); Ketones,Urine Trace mg/dL (Negative); Leukocyte Esterase,Urine Negative (Negative); Nitrite,Urine Negative (Negative); Protein,Urine Negative (Neg-Trace); Specific Gravity,Urine 1.015 (1.010-1.025); Urobilinogen,Urine Normal (Normal)
[2019-07-12] MEDS ORDERED: 0.9 % Sodium Chloride 1,000 ML IVC ONE (13:49)
[2019-07-12] MEDS ORDERED: Ondansetron 4 MG/2 ML VIAL IVP ONE (13:49)
[2019-07-12] MEDS ORDERED: Ketorolac 15 MG/ML VIAL IVP ONE (13:49)
[2019-07-12] MEDS ORDERED: *HR* Promethazine 25 MG/ML VIAL IVP ONE (16:09)
[2019-07-12] MEDS ORDERED: Acetaminophen 325 MG TABLET PO PRN (16:13)
[2019-07-12] MEDS ORDERED: Ondansetron 4 MG/2 ML VIAL IVP PRN (16:13)
[2019-07-12] MEDS ORDERED: MOM Conc 10 ML UD.LIQ PO PRN (16:13)
[2019-07-12] MEDS ORDERED: *HR* Promethazine 25 MG/ML VIAL IVP PRN ×2 (16:13→16:45)
[2019-07-12] MEDS ORDERED: Mag Hydrox/Al Hydrox/Simeth 30 ML UDC PO PRN (16:13)
[2019-07-12] MEDS ORDERED: Naloxone 0.4 MG/ML INJ IVP PRN (16:13)
[2019-07-12] MEDS ORDERED: Hyoscyamine 0.5 MG/ML MLS SQ PRN (16:18)
[2019-07-12] MEDS ORDERED: *HR* HYDROmorphone (PF) 1 MG/ML SYRINGE IVP ONE (16:46)
[2019-07-12] MEDS ORDERED: Pantoprazole 40 MG in 0.9 % Sodium Chloride 50 ML IVPB SCH (17:15)
[2019-07-12] MEDS: Pantoprazole 40 MG VIAL IVP SCH (17:46)
[2019-07-12] MEDS: *HR* Heparin 5,000 UNIT/ML VIAL SQ SCH (17:46)
[2019-07-12] MEDS: Ringers Solution, Lactated 2,000 ML IVC SCH (17:46)
[2019-07-12 18:07] LABS: Amphetamine Screen,Urine Negative ng/mL (Cutoff=1000); Barbiturate Screen,Urine Negative ng/mL (Cutoff=200); Benzodiazepines Screen,Urine Negative ng/mL (Cutoff=200); Cannabinoid Screen,Urine Positive ng/mL (Cutoff = 50); Cocaine Screen,Urine Negative ng/mL (Cutoff= 300); Opiate Screen,Urine Negative ng/mL (Cutoff=300); Phencyclidine Screen,Urine Negative ng/mL (Cutoff=25)
[2019-07-12] MEDS: *HR* LORazepam 2 MG/ML VIAL IVP PRN (18:53)
[2019-07-12] MEDS: Ketorolac 15 MG/ML VIAL IVP PRN (19:52)
[2019-07-13] MEDS: Ketorolac 15 MG/ML VIAL IVP PRN ×2 (00:40→08:28)
[2019-07-13] MEDS ORDERED: GI Cocktail 40 ML EACH PO ONE (01:18)
[2019-07-13] MEDS: Ringers Solution, Lactated 2,000 ML IVC SCH (04:06)
[2019-07-13 04:38] LABS: Basophils % 0.1 %; Hematocrit 43.1 % (37.5-50.1); Hemoglobin 14.9 g/dL (12.9-16.9); Immature Granulocytes % 0.1 % (0-4); Lymphocytes # 1.4 K/mcL (0.6-4.6); Lymphocytes % 20.4 %; Mean Corpuscular HGB Conc 34.6 g/dL (31.6-35.5); Mean Corpuscular Hemoglobin 32.7 pg (28.0-33.3); Mean Corpuscular Volume 94.7 fL (83.0-100.0); Mean Platelet Volume 8.6 fL (9.4-12.4); Monocytes # 0.3 K/mcL (0.0-1.3); Monocytes % 4.2 %; Platelet Count 265 K/mcL (140-400); Red Blood Count 4.55 M/mcL (4.19-5.50); Red Cell Distribution Width 12.9 % (11.5-14.5); Segmented Neutrophils % 75.2 %; White Blood Count 6.7 K/mcL (4.3-11.1)
[2019-07-13 05:01] LABS: BUN/Creatinine Ratio 26 (6-26); Blood Urea Nitrogen 14 mg/dL (6-20); Calcium 8.8 mg/dL (8.6-10.3); Carbon Dioxide 23 mEq/L (23-29); Chloride 101 mEq/L (98-107); Glucose 107 mg/dL (70-105); Magnesium 1.8 mg/dL (1.6-2.6); Osmolality,Calculated 281 (280-300); Phosphorous 3.4 mg/dL (2.7-4.5); Potassium 3.5 mEq/L (3.5-5.1); Sodium 135 mEq/L (136-145); eGFR For African Americans > 60 (> 60); eGFR For Non-African Americans > 60 (> 60)
[2019-07-13] MEDS: *HR* Heparin 5,000 UNIT/ML VIAL SQ SCH (05:22)
[2019-07-13 07:48] VITALS: BP 134/83
[2019-07-13] MEDS: *HR* LORazepam 2 MG/ML VIAL IVP PRN (08:27)
[2019-07-13] MEDS: Pantoprazole 40 MG VIAL IVP SCH (08:29)
[2019-07-13] MEDS ORDERED: Nicotine 21 MG PATCH.TD24 TD SCH (09:00)
== END 2019-07-13 09:24 | disposition home or self-care (01) ==
LOC: EMEROOARM 11:46 → 3BNU 11:46
PROVIDERS: ADMIT Internal Medicine; ATTEND Internal Medicine

== ENCOUNTER 2019-10-31 15:20 | Observation (INO) ==
[2019-10-31] MEDS ORDERED: *HR* Promethazine 25 MG/ML VIAL IVP ONE (15:38)
[2019-10-31] MEDS ORDERED: GI Cocktail 40 ML EACH PO ONE (15:38)
[2019-10-31] MEDS ORDERED: 0.9 % Sodium Chloride 1,000 ML IVC ONE (15:38)
[2019-10-31] MEDS ORDERED: *HR* LORazepam 2 MG/ML VIAL IVP ONE ×2 (15:59→20:43)
[2019-10-31 16:15] LABS: Bilirubin,Urine Negative (Negative); Blood,Urine Negative (Negative); Clarity,Urine Clear (Clear); Color,Urine Yellow (Yellow); Glucose,Urine (UA) Normal (Normal); Ketones,Urine Negative (Negative); Leukocyte Esterase,Urine Negative (Negative); Nitrite,Urine Negative (Negative); PH,Urine 7.5 pH Units (5.0-8.0); Protein,Urine Negative (Neg-Trace); Specific Gravity,Urine < 1.005 (1.010-1.025); Urobilinogen,Urine Normal (Normal)
[2019-10-31 16:22] LABS: Basophils % 0.2 %; Eosinophils % 0.3 %; Hematocrit 42.6 % (37.5-50.1); Hemoglobin 14.7 g/dL (12.9-16.9); Immature Granulocytes % 0.3 % (0-4); Lymphocytes # 1.6 K/mcL (0.6-4.6); Lymphocytes % 17.6 %; Mean Corpuscular HGB Conc 34.5 g/dL (31.6-35.5); Mean Corpuscular Hemoglobin 33.3 pg (28.0-33.3); Mean Corpuscular Volume 96.6 fL (83.0-100.0); Monocytes # 0.6 K/mcL (0.0-1.3); Monocytes % 6.3 %; Neutrophils # 6.6 K/mcL (1.6-8.9); Platelet Count 241 K/mcL (140-400); Red Blood Count 4.41 M/mcL (4.19-5.50); Red Cell Distribution Width 13.9 % (11.5-14.5); Segmented Neutrophils % 75.3 %; White Blood Count 8.8 K/mcL (4.3-11.1)
[2019-10-31 16:42] LABS: Alanine Aminotransferase 26 Units/L (7-52); Albumin 4.2 g/dL (3.5-5.7); Albumin/Globulin Ratio 1.9 (1.1-2.2); Alkaline Phosphatase 64 Units/L (34-104); Amylase 90 Units/L (29-103); Aspartate Amino Transferase 24 Units/L (13-39); BUN/Creatinine Ratio 16 (6-26); Bilirubin,Direct 0.1 mg/dL (0.0-0.2); Bilirubin,Indirect 0.6 mg/dL (0.0-1.0); Bilirubin,Total 0.7 mg/dL (0.3-1.0); Blood Urea Nitrogen 9 mg/dL (6-20); Calcium 8.9 mg/dL (8.6-10.3); Carbon Dioxide 20 mEq/L (23-29); Chloride 104 mEq/L (98-107); Globulin 2.2 g/dL (2.4-3.5); Glucose 109 mg/dL (70-105); Osmolality,Calculated 281 (280-300); Potassium 3.4 mEq/L (3.5-5.1); Sodium 136 mEq/L (136-145); Total Protein 6.4 g/dL (6.4-8.9); Troponin I < 0.03 ng/mL (< 0.04); eGFR For African Americans > 60 (> 60); eGFR For Non-African Americans > 60 (> 60)
[2019-10-31 16:57] LABS: Lipase < 3 Units/L (11-82)
[2019-10-31] MEDS ORDERED: Pantoprazole 40 MG VIAL IVP ONE (17:14)
[2019-10-31] MEDS ORDERED: Ondansetron 4 MG/2 ML VIAL IVP ONE (17:14)
[2019-10-31] MEDS ORDERED: *HR* HYDROmorphone (PF) 1 MG/ML SYRINGE IVP ONE (17:46)
[2019-10-31] MEDS ORDERED: *HR* Promethazine 25 MG/ML VIAL IVP PRN (17:47)
[2019-10-31] MEDS ORDERED: Ondansetron 4 MG/2 ML VIAL IVP PRN (17:47)
[2019-10-31] MEDS ORDERED: Ringers Solution, Lactated 1,000 ML IVC SCH (18:00)
[2019-10-31] MEDS ORDERED: Naloxone 0.4 MG/ML INJ IVP PRN (18:11)
[2019-10-31] MEDS: Nicotine 7 MG PATCH.TD24 TD SCH (18:56)
[2019-10-31] MEDS: Budesonide/Formoterol 160/4.5 1 PUFF INH IH SCH (20:21)
[2019-10-31] MEDS: Hyoscyamine SL 0.125 MG TAB.SUBL SL SCH (20:32)
[2019-10-31] MEDS ORDERED: ALBUTEROL SULFATE 90 MCG IH SCH (21:00)
[2019-11-01 03:41] LABS: BUN/Creatinine Ratio 11 (6-26); Blood Urea Nitrogen 7 mg/dL (6-20); Calcium 8.3 mg/dL (8.6-10.3); Carbon Dioxide 24 mEq/L (23-29); Chloride 107 mEq/L (98-107); Glucose 88 mg/dL (70-105); Magnesium 1.8 mg/dL (1.6-2.6); Osmolality,Calculated 283 (280-300); Potassium 3.6 mEq/L (3.5-5.1); Sodium 138 mEq/L (136-145); eGFR For African Americans > 60 (> 60); eGFR For Non-African Americans > 60 (> 60)
[2019-11-01] MEDS: Budesonide/Formoterol 160/4.5 1 PUFF INH IH SCH (07:42)
[2019-11-01] MEDS ORDERED: 0.9 % Sodium Chloride 1,000 ML IVC SCH (09:00)
[2019-11-01] MEDS ORDERED: *HR* LORazepam 0.5 MG TABLET PO SCH (09:00)
[2019-11-01] MEDS ORDERED: *HR* LORazepam 2 MG/ML VIAL IVP SCH ×2 (09:00→16:00)
[2019-11-01] MEDS ORDERED: Pantoprazole 40 MG VIAL IVP SCH (09:00)
[2019-11-01] MEDS: Nicotine 7 MG PATCH.TD24 TD SCH (09:38)
[2019-11-01] MEDS: Hyoscyamine SL 0.125 MG TAB.SUBL SL SCH (09:38)
[2019-11-01] MEDS ORDERED: Tiotropium 18 MCG inhalation IH SCH (10:00)
[2019-11-01 12:51] VITALS: BP 140/82
[2019-11-01] MEDS ORDERED: *HR* Propofol 200 MG/20 ML VIAL IVP ONE (13:38)
[2019-11-01] MEDS ORDERED: Lidocaine -MPF 4% 5 ML AMPUL ONE (13:55)
[2019-11-01] MEDS ORDERED: Ondansetron 4 MG/2 ML VIAL ONE (13:55)
== END 2019-11-01 15:32 | disposition home or self-care (01) ==
LOC: 3BNU 15:20 → EMEROOARM 15:20 → SUATTDRO 17:31 → 3BNU 18:09
PROVIDERS: ADMIT Internal Medicine; ATTEND Internal Medicine
PROC: ENDOEBX (2019-11-01 13:45)